=== PATIENT | female | born 1950 | race Caucasian/White ===

== ENCOUNTER 2021-10-15 15:56 | Emergency (ER) | payer MEDICARE, MEDICAID ==
[~2021-10-15] VITALS: Ht 152.4 cm; Wt 63.5 kg
[~2021-10-15 15:56] MED LIST: IMITREX; LEVAAER4
[2021-10-16 04:00] VITALS: BP 145/78
[2021-10-16] MEDS ORDERED: traMADol HCL 50 MG TAB PO ONE (04:00)
[2021-10-16] MEDS ORDERED: methylPREDNISolone SOD SUCC 125 MG/2 ML VL IM ONE (04:00)
== END 2021-10-16 05:34 | disposition home or self-care (01) ==
LOC: EDUNIT# 15:56 → ER 15:56
DX: S93.602A Unspecified sprain of left foot, initial encounter (principal); F17.210 Nicotine dependence, cigarettes, uncomplicated; Z88.0 Allergy status to penicillin; W19.XXXA Unspecified fall, initial encounter; Y93.89 Activity, other specified; Y92.89 Other specified places as the place of occurrence of the external cause; Y99.8 Other external cause status
CPT/HCPCS: 73630; 96372; 99283; J2930

== ENCOUNTER 2022-03-28 18:49 | Emergency (ER) | payer BC, MEDICAID ==
[~2022-03-28] VITALS: Ht 149.9 cm; Wt 48.1 kg
== END 2022-03-28 21:54 | disposition home or self-care (01) ==
LOC: EDBD 18:49 → ER 18:57
DX: I89.0 Lymphedema, not elsewhere classified (principal); F17.210 Nicotine dependence, cigarettes, uncomplicated; I50.9 Heart failure, unspecified; Z79.899 Other long term (current) drug therapy; Z88.8 Allergy status to other drugs, medicaments and biological substances; Z59.00 Homelessness unspecified

== ENCOUNTER 2022-03-29 22:58 | Emergency (ER) | payer BC, MEDICAID ==
[~2022-03-29] VITALS: Ht 157.5 cm; Wt 63.5 kg
[2022-03-30 02:01] LABS: Eosinophils # (auto) 0.1 10 ^3/uL (0-0.8); Eosinophils % (auto) 0.9 % (0.0-7.0); Mean Corpuscular Hemoglobin 24.8 pg (28.0-32.0); Mean Corpuscular Hgb Conc. 32.5 g/dL (32.0-36.0); Monocytes # (auto) 0.4 10 ^3/uL (0-1.3); Neutrophils # (auto) 3.9 10 ^3/uL (1.6-8.6); White Blood Cell 6.3 10^3/uL (4.4-10.8)
[2022-03-30 02:03] LABS: Basophils # (auto) 0 10 ^3/uL (0-0.2); Basophils % (auto) 0.8 % (0.0-2.0); Hematocrit 27.1 % (36.0-46.0); Hemoglobin 8.8 g/dL (12.2-16.2); Lymphocytes # (auto) 1.8 10 ^3/uL (0.4-5.4); Lymphocytes % (auto) 29.5 % (10.0-50.0); Mean Corpuscular Volume 76.4 fL (80.0-100.0); Monocytes % (auto) 5.8 % (0.0-12.0); Red Blood Cells 3.54 10^6/uL (4.0-5.20)
[2022-03-30 02:04] LABS: Red Cell Distribution Width 21.2 % (11.8-14.3)
[2022-03-30 02:20] LABS: Albumin 2.7 g/dL (3.4-5.0); BUN/Creatinine Ratio 26.7; Calcium 8.3 mg/dL (8.5-10.1); Potassium 4.1 mmol/L (3.5-5.1)
[2022-03-30 02:23] LABS: Bilirubin, Total 0.4 mg/dL (0.2-1.0); Total Protein 5.8 g/dL (6.4-8.2)
[2022-03-30 02:30] LABS: Alcohol, Urine < 3.0 mg/dL (0-10); Amphetamine Screen, Urine NEGATIVE (NEGATIVE); Barbiturate Scree,Urine NEGATIVE (NEGATIVE); Benzodiazephine Screen, Urine NEGATIVE (NEGATIVE); Opiate Scree,Urine NEGATIVE (NEGATIVE); Phencyclidine Screen, Urine NEGATIVE (NEGATIVE)
[2022-03-30 02:31] LABS: Cannabinoid Screen, Urine NEGATIVE (NEGATIVE); Cocaine Screen, Urine NEGATIVE (NEGATIVE)
[2022-03-30 03:00] VITALS: BP 120/53
== END 2022-03-30 04:32 | disposition home or self-care (01) ==
LOC: EDBD 22:58 → ER 23:03
DX: R56.9 Unspecified convulsions (principal)
CPT/HCPCS: 36415; 70450; 80053; 80307; 82962; 85025; 93005

== ENCOUNTER 2022-03-30 10:21 | Emergency (ER) | payer BC, MEDICAID ==
[~2022-03-30] VITALS: Ht 149.9 cm; Wt 49.9 kg
== END 2022-03-30 10:44 | disposition left against medical advice (07) ==
LOC: ER 10:21 → EDBD 10:21 → EDUNIT# 10:21 → ER 10:44
DX: Z02.79 Encounter for issue of other medical certificate (principal); Z53.21 Procedure and treatment not carried out due to patient leaving prior to being seen by health care provider

== ENCOUNTER 2022-05-11 13:58 | Inpatient (IN) | payer BC, MEDICAID ==
[~2022-05-11] VITALS: Ht 157.5 cm; Wt 63.5 kg
[2022-05-11] MEDS ORDERED: SODIUM CHLORIDE 0.9% 2,100 ML IV ONE (14:15)
[2022-05-11 15:45] LABS: Basophils # (auto) 0 10 ^3/uL (0-0.2); Basophils % (auto) 0.1 % (0.0-2.0); Eosinophils # (auto) 0 10 ^3/uL (0-0.8); Hemoglobin 8.6 g/dL (12.2-16.2); Monocytes # (auto) 0.7 10 ^3/uL (0-1.3); White Blood Cell 9.9 10^3/uL (4.4-10.8)
[2022-05-11 15:46] LABS: Lymphocytes % (auto) 10.5 % (10.0-50.0); Mean Corpuscular Hemoglobin 23.2 pg (28.0-32.0); Mean Corpuscular Hgb Conc. 30.7 g/dL (32.0-36.0); Mean Corpuscular Volume 75.5 fL (80.0-100.0); Monocytes % (auto) 7.2 % (0.0-12.0); Neutrophils # (auto) 8.1 10 ^3/uL (1.6-8.6); Neutrophils % (auto) 82.2 % (37.0-80.0); Red Blood Cells 3.71 10^6/uL (4.0-5.20); Red Cell Distribution Width 17.8 % (11.8-14.3)
[2022-05-11 15:53] LABS: Albumin 2.7 g/dL (3.4-5.0); Anion Gap 9 (5-15); BUN/Creatinine Ratio 34.2; Blood Alcohol < 3.0 mg/dL (0-5); Blood Urea Nitrogen 25 mg/dL (7-18); Calcium 8.4 mg/dL (8.5-10.1); Carbon Dioxide 25 mmol/L (21-32); Chloride 103 mmol/L (98-107); GFR African American 101 mL/min; GFR Non-African American 83 mL/min; Glucose 106 mg/dL (74-106); Potassium 3.5 mmol/L (3.5-5.1); Sodium 137 mmol/L (136-145)
[2022-05-11 15:56] LABS: Alanine Aminotransferase 72 U/L (13-56); Alkaline Phosphatase 236 U/L (45-117); Aspartate Aminotransferase 63 U/L (15-37); Bilirubin, Total 0.7 mg/dL (0.2-1.0)
[2022-05-11 16:48] LABS: Partial Thromboplastin Time 25.4 sec (23.6-33.0)
[2022-05-11] MEDS ORDERED: VANCOMYCIN 1GM/250ML 250 ML IV ONE (22:00)
[2022-05-11] MEDS ORDERED: PIPERACILLIN-TAZO 4.5GM 100 ML IV ONE (22:00)
[2022-05-12] MEDS ORDERED: SODIUM CHLORIDE 0.9% 1,000 ML IV SCH (07:15)
[2022-05-12] MEDS ORDERED: NITROGLYCERIN 0.4 MG SL TAB SL PRN (07:15)
[2022-05-12] MEDS ORDERED: MORPHINE SULFATE 4 MG/ML SYR/VIAL IV PRN (07:15)
[2022-05-12] MEDS ORDERED: ONDANSETRON HCL 4 MG/2 ML VIAL IV PRN (07:15)
[2022-05-12] MEDS: METOPROLOL TARTRATE 25 MG TAB PO SCH ×2 (09:26→23:25)
[2022-05-12] MEDS: DOCUSATE SOD 100 MG CAP PO SCH (09:26)
[2022-05-12] MEDS: LISINOPRIL 10 MG TAB PO SCH (09:26)
[2022-05-12] MEDS: ACETAMINOPHEN 325 MG TAB PO PRN ×2 (09:35→15:59)
[2022-05-12] MEDS ORDERED: ENOXAPARIN SOD 60 MG/0.6 ML SYRINGE SC SCH (10:00)
[2022-05-12] MEDS ORDERED: CLOPIDOGREL BISULFATE 75 MG TAB PO SCH (10:00)
[2022-05-12] MEDS ORDERED: ASPirin 81 mg TAB PO SCH (10:00)
[2022-05-12] MEDS ORDERED: cefTRIAXone 1GM/50ML D5W 50 ML IV SCH (10:00)
[2022-05-12] MEDS ORDERED: FUROSEMIDE 20 MG/2 ML VIAL IV ONE (11:00)
[2022-05-12] MEDS: CLINDAMYCIN HCL 150 MG CAP PO SCH ×2 (12:34→20:49)
[2022-05-12] MEDS ORDERED: ATORVASTATIN 20 MG TAB PO SCH (22:00)
[2022-05-13] MEDS: CLINDAMYCIN HCL 150 MG CAP PO SCH ×3 (03:27→20:59)
[2022-05-13] MEDS: ACETAMINOPHEN 325 MG TAB PO PRN ×3 (03:30→15:47)
[2022-05-13 05:00] VITALS: BP 103/48
[2022-05-13 05:52] LABS: Basophils # (auto) 0 10 ^3/uL (0-0.2); Eosinophils # (auto) 0 10 ^3/uL (0-0.8); Hemoglobin 7.5 g/dL (12.2-16.2); Lymphocytes # (auto) 0.6 10 ^3/uL (0.4-5.4); Monocytes # (auto) 0.7 10 ^3/uL (0-1.3)
[2022-05-13 05:54] LABS: Basophils % (auto) 0.1 % (0.0-2.0); Hematocrit 24.3 % (36.0-46.0); Lymphocytes % (auto) 4.9 % (10.0-50.0); Mean Corpuscular Hgb Conc. 30.7 g/dL (32.0-36.0); Mean Corpuscular Volume 74.9 fL (80.0-100.0); Monocytes % (auto) 5.4 % (0.0-12.0); Neutrophils # (auto) 11.7 10 ^3/uL (1.6-8.6); Neutrophils % (auto) 89.6 % (37.0-80.0); Red Blood Cells 3.25 10^6/uL (4.0-5.20); Red Cell Distribution Width 17.6 % (11.8-14.3); White Blood Cell 13.1 10^3/uL (4.4-10.8)
[2022-05-13 06:07] LABS: Magnesium 2.1 mg/dL (1.6-2.6); Potassium 3.4 mmol/L (3.5-5.1)
[2022-05-13 06:10] LABS: BUN/Creatinine Ratio 28.6
[2022-05-13 09:00] VITALS: BP 132/51
[2022-05-13] MEDS: DOCUSATE SOD 100 MG CAP PO SCH (09:31)
[2022-05-13] MEDS: LISINOPRIL 10 MG TAB PO SCH (09:32)
[2022-05-13] MEDS: METOPROLOL TARTRATE 25 MG TAB PO SCH (09:32)
[2022-05-13] MEDS ORDERED: FUROSEMIDE 20 MG TAB PO SCH (10:00)
[2022-05-13] MEDS ORDERED: QUET400T PO ×2 (11:28)
[2022-05-13] MEDS ORDERED: DIVA500T2 PO (11:28)
[2022-05-13 13:00] VITALS: BP 101/38
[2022-05-13 17:00] VITALS: BP 104/40
== END 2022-05-13 21:42 | DRG 602 ==
LOC: ER 13:58 → EDBD 13:58 → TELE 05-12 07:06 → TELE-CENTR 05-12 22:40
PROVIDERS: ADMIT Hospitalist; ATTEND Internal Medicine
DX: L03.115 Cellulitis of right lower limb (principal); J18.9 Pneumonia, unspecified organism; F31.81 Bipolar II disorder; L03.114 Cellulitis of left upper limb; L03.113 Cellulitis of right upper limb; I50.22 Chronic systolic (congestive) heart failure; I11.0 Hypertensive heart disease with heart failure; Z20.822 Contact with and (suspected) exposure to COVID-19; J44.9 Chronic obstructive pulmonary disease, unspecified; R56.9 Unspecified convulsions; S81.802A Unspecified open wound, left lower leg, initial encounter; S81.801A Unspecified open wound, right lower leg, initial encounter; S41.102A Unspecified open wound of left upper arm, initial encounter; S41.101A Unspecified open wound of right upper arm, initial encounter; X58.XXXA Exposure to other specified factors, initial encounter; L03.116 Cellulitis of left lower limb; F41.9 Anxiety disorder, unspecified; Z59.00 Homelessness unspecified; Z88.6 Allergy status to analgesic agent; Z88.0 Allergy status to penicillin; Z91.14 Patient's other noncompliance with medication regimen; Y93.89 Activity, other specified; Y92.89 Other specified places as the place of occurrence of the external cause; Y99.8 Other external cause status
CPT/HCPCS: 36415; 36600; 71045; 80048; 80053; 80061; 80320; 82805; 83605; 83735; 83880; 84484; 85025; 85610; 85730; 87040; 87077; 87205; 93306; 93970; 96360; 96372; 97163; 99291; G0378; J0696

== ENCOUNTER 2025-09-25 19:01 | Inpatient (IN) | payer OTHER, MEDICAID ==
[~2025-09-25] VITALS: Ht 152.4 cm; Wt 77.0 kg
[~2025-09-25 19:01] MED LIST changes: +DIVA-91 PO; +QUET400T PO
[2025-09-25 19:12] VITALS: BP 148/80; PULSE 81; RESP 17; TEMP 98.5; O2SAT 97
--- NOTE | 2025-09-25 19:12 | ED.PDOC ---
History of Present Illness HPI Comments 75-YEAR-OLD FEMALE WHO PRESENTS TO THE EMERGENCY DEPARTMENT WITH LEFT LOWER EXTREMITY WOUND. PATIENT WAS AD[facility]ITT[facility] TO [facility] , TREATED FOR MRSA. SHE WAS DISCHARGED IN . SHE STARTED NEW COURSE OF ANTIBIOTIC FOR INFECTED WOUND 10 DAYS AGO, SHE HAS COMPLETED THE COURSE OF ANTIBIOTIC. PATIENT IS A POOR HISTORIAN. PATIENT WAS BROUGHT IN BY EMS FROM [facility]RG[facility] FOR EVALUATION IN THE EMERGENCY DEPARTMENT. REVIEW OF SYSTEMS: General: No fever, no chills, or fatigue HEENT: No sore throat, no earache, no congestion, no neck pain. Cardiac: No chest pain. No palpitations. Lungs: No shortness of breath, no cough. GI: No nausea, no vomiting, no diarrhea, no constipation, no abdominal pain : No dysuria, frequency, or urgency. No hematuria. Musculoskeletal: No joint pain , no joint swelling, no extremity edema. Skin: No rash, no itching. Neuro: No headache, no dizziness, no weakness (And as sated in HPI) PHYSICAL EXAM: General: Awake, alert and oriented. No acute distress. Skin: Skin in warm, dry and intact without rashes or lesions. HEENT: The head is normocephalic and atraumatic. Conjunctivae are clear without exudates or hemorrhage. Sclera is non-icteric. Neck: Normal range of motion. No JVD. Cardiac: Regular rate Respiratory: No signs of respiratory distress. No Stridor. Extremities: EXTENSIVE OPEN LEFT LOWER EXTREMITY WE WILL SURROUNDING ERYTHEMA, PURULENT BASE OF FELL ODOR. LEFT LATERAL CALF. Neurological: The patient is awake, alert and oriented to person, place, and time with normal speech. Speech is clear. There is no facial asymmetry. She is able to ambulate without difficulty using her walker. Psychiatric: Appropriate mood and affect. Good judgement and insight. Chief Complaint: Lower Extremity Time Seen by MD: 19:02 Primary Care Provider: Denies Allergies: Coded Allergies: Aspirin (Verified Allergy, Unknown, 05/12/22) Penicillins (Verified Allergy, Unknown, 05/12/22) Home Meds Reported Medications Quetiapine Fumerate (Seroquel) 400 Mg Tab, 600 MG PO QPM, TAB 05/13/22 Quetiapine Fumerate (Seroquel) 400 Mg Tab, 1 TAB PO QAM, #30 TAB 1 Refill 05/13/22 Divalproex Sodium (Depakote) 500 Mg Tab, 1 TAB PO BID, #60 TAB 1 Refill 05/13/22 Levalbuterol Tartrate (Xopenex Hfa) Aer 11/07/11 [Imitrex] No Conflict Check 11/07/11 Mode of Arrival: EMS Past Medical History PAST MEDICAL HISTORY: Anxiety, Arthritis, CHF, COPD, Depression, HTN, Seizures Surgical History: Denies all surgeries OLIVE GROWER History: No Pertinent OLIVE GROWER History Family History Family History: Unknown Social History Smoker: Cigarettes Alcohol: Denies ETOH Use Drugs: Other Lives In: Homeless Was a procedure done? Was a procedure done?: No Differential Dx Considerations may include: Osteomyelitis, Sepsis, MRSA, Gangrene, Necrotizing Fasciitis, other X-Ray, Labs, Meds, VS Vital Signs Date Time Temp Pulse Resp B/P (MAP) Pulse Ox O2 Delivery O2 Flow Rate FiO2 09/25/25 19:23 98.6 84 19 128/74 (92) 99 98.6 09/25/25 19:22 Room Air* 0 21 09/25/25 19:06 98.4 84 16 145/74 96 98.4 Lab Test 09/25/25 19:40 Range/Units White Blood Count 9.0 4.4-10.8 10^3/uL Red Blood Count 4.31 4.0-5.20 10^6/uL Hemoglobin 11.5 L 12.2-16.2 g/dL Hematocrit 35.8 L 36.0-46.0 % Mean Corpuscular Volume 83.2 80.0-100.0 fL Mean Corpuscular Hemoglobin 26.7 L 28.0-32.0 pg Mean Corpuscular Hemoglobin Concent 32.1 32.0-36.0 g/dL Red Cell Distribution Width 17.6 H 11.8-14.3 % Platelet Count 395 140-450 10^3/uL Mean Platelet Volume 8.1 6.9-10.8 fL Neutrophils (%) (Auto) 71.4 37.0-80.0 % Lymphocytes (%) (Auto) 20.0 10.0-50.0 % Monocytes (%) (Auto) 6.8 0.0-12.0 % Eosinophils (%) (Auto) 0.5 0.0-7.0 % Basophils (%) (Auto) 1.3 0.0-2.0 % Neutrophils # (Auto) 6.5 1.6-8.6 10 ^3/uL Lymphocytes # (Auto) 1.8 0.4-5.4 10 ^3/uL Monocytes # (Auto) 0.6 0-1.3 10 ^3/uL Eosinophils # (Auto) 0 0-0.8 10 ^3/uL Basophils # (Auto) 0.1 0-0.2 10 ^3/uL Nucleated Red Blood Cells 0.1 % Sodium Level 138 136-145 mmol/L Potassium Level 4.4 3.5-5.1 mmol/L Chloride Level 105 98-107 mmol/L Carbon Dioxide Level 24 20-31 mmol/L Anion Gap 9 5-15 Blood Urea Nitrogen 18 9-23 mg/dL Creatinine 0.72 0.550-1.02 mg/dL Glomerular Filtration Rate Calc 87 >90 mL/min BUN/Creatinine Ratio 25.0 H 10.0-20.0 Serum Glucose 126 H 74-106 mg/dL Calcium Level 9.2 8.7-10.4 mg/dL Total Bilirubin 0.3 0.2-1.0 mg/dL Aspartate Amino Transferase (AST) 20 13-40 U/L Alanine Aminotransferase (ALT) < 9 7-40 U/L Alkaline Phosphatase 154 H 46-116 U/L Total Protein 7.1 5.7-8.2 g/dL Albumin 4.0 3.2-4.8 g/dL Time of 1ST Reevaluation: 19:12 Reevaluation 1ST: Unchanged Patient Education/Counseling: Need For Follow Up Family Education/Counseling: No Family Present SEPSIS Sepsis Screen Date sepsis recognized/suspect: Sep 25, 2025 Time Sepsis recognized/suspect: 1907 Recent Procedure: No On Antibiotic Therapy: No Respiratory Rate >20: No Heart Rate >90: No Temp<36 C (96.8 F) or >38.3 C: No SBP <90 or MAP <65 mmHG: No New Acute Mental Status Change: No Is the patient on CPAP, BIPAP,: No Physician Orders Sodium Chloride 0.9% (09/25/25 19:15) Vital Signs Q1HR (09/25/25 19:10) Saline Lock (09/25/25 19:10) Notify Md If Abnormal Vs (09/25/25 19:10) Lactic Acid W/ Reflex Order (09/25/25 19:10) Blood Culture (09/25/25 19:10) Wound Culture W/ Gs (09/25/25 19:10) Vital Signs Date Time Temp Pulse Resp B/P (MAP) Pulse Ox O2 Delivery O2 Flow Rate FiO2 09/25/25 19:23 98.6 84 19 128/74 (92) 99 98.6 09/25/25 19:22 Room Air* 0 21 09/25/25 19:06 98.4 84 16 145/74 96 98.4 Laboratory Tests Test 09/25/25 19:40 White Blood Count 9.0 10^3/uL (4.4-10.8) Departure 1 Departure Time of Disposition: 19:16 Impression: Primary Impression: Non-healing wound Additional Impression: Infected wound Disposition: ADMITTED INPATIENT Condition: Stable Comments MDM: 75 yo female with reported MRSA wound, left calf. Antibiotics initiated in the ED. Blood and Wound cultures ordered. Patient admitted to hospitalist service for further treatment, evaluation and monitoring. Extensive evaluation was performed in attempt to identify or rule out: (See differential diagnosis section) The following tests were ordered, and results were reviewed by me and discussed with patient: (See diagnostic results section) Additional information was gathered from interviewing the following independent historians: EMS personnel Discussion of management or test interpretation with external physician/other qualified health client care manager: N/A Addressed an acute or chronic illness that poses a threat to life or bodily function: Infected, nonhealing wound Decision regarding hospitalization or escalation of hospital level of care: Risk and benefits of admission for further treatment of patient's condition was considered. Due to patient's current clinical condition, high risk of decline and poor outcome if discharged and need for further inpatient management and monitoring, patient will be admitted to the hospital. Critical Care Note Critical Care Time?: No Stability Stability form required: No Heart Score Heart Score: Heart Score Response (Comments) Value History N/A 0 EKG N/A 0 Age N/A 0 Risk Factors N/A 0 Troponin N/A 0 Total 0 I personally scribed for CINDY MENDOZA MD ([email or web address]) on 09/25/25 at 19:12. Electronically submitted by Speedy Zimmerman ([email or web address]). CINDY MENDOZA MD Sep 25, 2025 19:12
[2025-09-25] MEDS: VANCOMYCIN 1GM/250ML KIT 250 ML IV ONE (19:15)
[2025-09-25 19:54] LABS: Mean Corpuscular Hemoglobin 26.7 pg (28.0-32.0); Nucleated Red Blood Cells % 0.1 %
[2025-09-25 19:55] LABS: Hematocrit 35.8 % (36.0-46.0); Hemoglobin 11.5 g/dL (12.2-16.2); Mean Corpuscular Volume 83.2 fL (80.0-100.0)
[2025-09-25 20:08] LABS: Albumin 4.0 g/dL (3.2-4.8); Anion Gap 9 (5-15); BUN/Creatinine Ratio 25.0 (10.0-20.0); Blood Urea Nitrogen 18 mg/dL (9-23); Calcium 9.2 mg/dL (8.7-10.4); Carbon Dioxide 24 mmol/L (20-31); Chloride 105 mmol/L (98-107); Potassium 4.4 mmol/L (3.5-5.1); Sodium 138 mmol/L (136-145); Total Protein 7.1 g/dL (5.7-8.2)
[2025-09-25 20:09] LABS: Alanine Aminotransferase < 9 U/L (7-40); Alkaline Phosphatase 154 U/L (46-116); Bilirubin, Total 0.3 mg/dL (0.2-1.0)
[2025-09-25 20:20] LABS: Glucose 126 mg/dL (74-106)
[2025-09-25] MEDS ORDERED: NITROGLYCERIN 0.4 MG SL TAB SL PRN (22:45)
[2025-09-25] MEDS ORDERED: VANCOMYCIN PER PHARMACY 0 MG IV SCH (22:45)
--- NOTE | 2025-09-25 23:22 | DVHHPRES ---
History of Present Illness Resident Creating Document: MARY GOLDSTEIN RESIDENT History of Present Illness This is a 75-year-old female with past medical history of HTN, COPD not on home oxygen, CHF with reduced ejection fraction LVEF 45%, seizure, bipolar disorder, depression, current smoker came to ER with complaint of left hip and left leg pain associated with nonhealing wound. The left leg pain was7-8/10 intensity, localized, no radiation, continuous, aggravated on weight-bearing in mild relieved on rest. As per patient, patient had left hip fracture and admitted [facility] on July [facility]25 and treated with MRSA, completed oral antibiotic. Patient non-cooperative during history taking. Echocardiogram on 05/13/2022: LVEF 45%, biatrial enlargement, aortic and mitral valve heavily calcified. Blood culture 05/12/2022 shows Streptococcus group A. Patient had remote history of IV drug user , current cigarette smoker and marijuana daily. Patient use Rollator walker for ambulation. Patient denies fever, chills, body aches, vomiting, diarrhea, nausea, abdominal pain, chest pain, shortness of breath, LOC, Past medical history: As above Past surgical history: Patient refused to provide any surgical history. Family history: Nothing contributory Personal history: Smoking cigarettes 1 pack per day, marijuana daily, denies any alcohol or illicit drug Alert Allergy: Aspirin and penicillin PCP: Not selected Home medication: Albuterol, amlodipine, aspirin, atorvastatin, beclomethasone inhalers, budesonide, divalproex, gabapentin, hydroxyzine, metoprolol, quetiapine, Brilinta. Review of Systems Constitutional: Yes: Chills, Malaise; No: Fever, Sweats, Weakness, Other Eyes: No: Pain, Vision change, Conjunctivae inflammation, Eyelid inflammation, Other, Redness ENT: No: Ear pain, Ear discharge, Nose pain, Nose discharge, Nose congestion, Mouth pain, Mouth swelling, Throat pain, Throat swelling, Other Respiratory: No: Cough, Dry, Shortness of breath, SOB with excertion, Wheezing, Hemoptysis, Pleuritic Pain, Sputum, Wheezing, Other Cardiovascular: No: Chest Pain, Palpitations, Orthopnea, Paroxysmal Noc. Dyspnea, Edema, Lt Headedness, Other Gastrointestinal: No: Nausea, Vomiting, Abdominal Pain, Diarrhea, Constipation, Melena, Hematochezia, Other Genitourinary: No Dysuria, No Frequency, No Incontinence, No Hematuria, No Retention, No Other Musculoskeletal: other (Left hip pain), leg pain; No: neck pain, shoulder pain, arm pain, back pain, hand pain, foot pain Skin: Other (Lateral surface of left leg and left hip nonhealing wound); No: Rash, Lesions, Jaundice, Bruising Neurological: Other (Gait instability); No: Weakness, Numbness, Incoordination, Change in speech, Confusion, Seizures Allergies: Coded Allergies: Aspirin (Verified Allergy, Unknown, 05/12/22) Penicillins (Verified Allergy, Unknown, 05/12/22) Medications Current Medications Medications Dose Ordered Sig/Leah Route Start Time Stop Time Status Last Admin Dose Admin Acetaminophen/ Hydrocodone Bitart 1 tab Q4HP PRN PO 09/25/25 22:45 UNV Enoxaparin Sodium 40 mg DAILY SC 09/26/25 10:00 UNV Zinc Sulfate 220 mg DAILY PO 09/26/25 10:00 UNV Ascorbic Acid 500 mg BID PO 09/26/25 10:00 UNV Nitroglycerin 0.4 mg Q5MINP PRN SL 09/25/25 22:45 UNV Ceftriaxone Sodium 50 ml @ 100 mls/hr DAILY@09 IV 09/26/25 09:00 UNV Vancomycin HCl 0 ml @ 0 mls/hr PER PHARMACY IV 09/25/25 22:45 UNV Pantoprazole Sodium 40 mg DAILY@0600 PO 09/26/25 06:00 UNV Ticagrelor 90 mg BID PO 09/26/25 10:00 UNV Quetiapine Fumarate 50 mg BID PO 09/26/25 10:00 UNV Metoprolol Succinate 50 mg DAILY PO 09/26/25 10:00 UNV Gabapentin 300 mg BID PO 09/26/25 10:00 UNV Divalproex Sodium 500 mg BID PO 09/26/25 10:00 UNV Budesonide 0.25 mg BID NEB 09/26/25 10:00 UNV Albuterol 2.5 mg Q8HPRN PRN NEB 09/25/25 22:45 UNV Amlodipine Besylate 5 mg DAILY PO 09/26/25 10:00 UNV Aspirin 81 mg DAILY PO 09/26/25 10:00 UNV Atorvastatin Calcium 80 mg HS PO 09/26/25 22:00 UNV Exam Vital Signs Vital Signs Date Time Temp Pulse Resp B/P (MAP) Pulse Ox O2 Delivery O2 Flow Rate FiO2 09/25/25 19:23 98.6 84 19 128/74 (92) 99 98.6 09/25/25 19:22 Room Air* 0 21 General Appearance: Alert, Oriented X3, mild distress HEENT: Atraumatic, PERRLA, EOMI Respiratory: Normal air movement, Other (Mild wheeze on expiration bilateral lung) Cardiovascular: Regular rate, Normal S1, Normal S2, No murmurs Abdominal: Normal bowel sounds, Soft, No tenderness, No hepatospenomegaly Extremities: No clubbing, No cyanosis, Other (Lateral surface of left leg and left hip nonhealing wound) Skin: No rashes, No breakdown Neuro: Normal speech, Strength at 5/5 X4 ext, Sensation intact, Other (Gait instability) Labs/Xrays Labs Test 09/25/25 19:40 Range/Units White Blood Count 9.0 4.4-10.8 10^3/uL Red Blood Count 4.31 4.0-5.20 10^6/uL Hemoglobin 11.5 L 12.2-16.2 g/dL Hematocrit 35.8 L 36.0-46.0 % Mean Corpuscular Volume 83.2 80.0-100.0 fL Mean Corpuscular Hemoglobin 26.7 L 28.0-32.0 pg Mean Corpuscular Hemoglobin Concent 32.1 32.0-36.0 g/dL Red Cell Distribution Width 17.6 H 11.8-14.3 % Platelet Count 395 140-450 10^3/uL Mean Platelet Volume 8.1 6.9-10.8 fL Neutrophils (%) (Auto) 71.4 37.0-80.0 % Lymphocytes (%) (Auto) 20.0 10.0-50.0 % Monocytes (%) (Auto) 6.8 0.0-12.0 % Eosinophils (%) (Auto) 0.5 0.0-7.0 % Basophils (%) (Auto) 1.3 0.0-2.0 % Neutrophils # (Auto) 6.5 1.6-8.6 10 ^3/uL Lymphocytes # (Auto) 1.8 0.4-5.4 10 ^3/uL Monocytes # (Auto) 0.6 0-1.3 10 ^3/uL Eosinophils # (Auto) 0 0-0.8 10 ^3/uL Basophils # (Auto) 0.1 0-0.2 10 ^3/uL Nucleated Red Blood Cells 0.1 % Sodium Level 138 136-145 mmol/L Potassium Level 4.4 3.5-5.1 mmol/L Chloride Level 105 98-107 mmol/L Carbon Dioxide Level 24 20-31 mmol/L Anion Gap 9 5-15 Blood Urea Nitrogen 18 9-23 mg/dL Creatinine 0.72 0.550-1.02 mg/dL Glomerular Filtration Rate Calc 87 >90 mL/min BUN/Creatinine Ratio 25.0 H 10.0-20.0 Serum Glucose 126 H 74-106 mg/dL Calcium Level 9.2 8.7-10.4 mg/dL Total Bilirubin 0.3 0.2-1.0 mg/dL Aspartate Amino Transferase (AST) 20 13-40 U/L Alanine Aminotransferase (ALT) < 9 7-40 U/L Alkaline Phosphatase 154 H 46-116 U/L Total Protein 7.1 5.7-8.2 g/dL Albumin 4.0 3.2-4.8 g/dL SEPSIS Sepsis Screen Date sepsis recognized/suspect: Sep 25, 2025 Time Sepsis recognized/suspect: 1907 Recent Procedure: No On Antibiotic Therapy: No Respiratory Rate >20: No Heart Rate >90: No Temp<36 C (96.8 F) or >38.3 C: No SBP <90 or MAP <65 mmHG: No New Acute Mental Status Change: No Is the patient on CPAP, BIPAP,: No Physician Orders Sodium Chloride 0.9% (09/25/25 19:15) Vital Signs Q1HR (09/25/25 19:10) Saline Lock (09/25/25 19:10) Notify Md If Abnormal Vs (09/25/25 19:10) Lactic Acid W/ Reflex Order (09/25/25 19:10) Blood Culture (09/25/25 19:10) Wound Culture W/ Gs (09/25/25 19:10) Admit (09/25/25 22:41) Code Status (09/25/25 22:41) Hydrocodone-Acet 5/325mg Tab ([place] 5/32 (09/25/25 22:45) Enoxaparin Sodium (Lovenox) (09/26/25 10:00) Zinc Sulfate (09/26/25 10:00) Ascorbic Acid Tablet (Vitamin C Tablet) (09/26/25 10:00) Echo 2d Mode Cardiac Dop (09/25/25 22:41) Notify Md Of Changes From Base (09/25/25 22:41) Nitroglycerin Sublingual (Ntrostat Subli (09/25/25 22:45) Urinalysis (09/25/25 22:41) Lt Low Ext Art Duplex (09/25/25 22:41) Ceftriaxone 1gm/50ml (Rocephin) (09/26/25 09:00) Vancomycin Per Pharmacy (09/25/25 22:45) Mechanical Soft Diet (09/26/25 Breakfast) Pantoprazole Tablet (Protonix Tablet) (09/26/25 06:00) Ticagrelor (Brilinta) (09/26/25 10:00) Quetiapine Fumarate Tablet (Seroquel Tab (09/26/25 10:00) Metoprolol Xl Succinate (Toprol Xl) (09/26/25 10:00) Gabapentin Capsule (Neurontin Capsule) (09/26/25 10:00) Divalproex Dr Tablet (Depakote "Dr" Tabl (09/26/25 10:00) Budesonide (Inhalation) (Pulmicort) (09/26/25 10:00) Albuterol Medneb (Ventolin Medneb) (09/25/25 22:45) Amlodipine Tablet (Norvasc Tablet) (09/26/25 10:00) Aspirin Tablet (09/26/25 10:00) Atorvastatin (Lipitor) (09/26/25 22:00) * Wound Consult (09/25/25 ) Lt Lower Dvt (09/25/25 22:41) Vital Signs Date Time Temp Pulse Resp B/P (MAP) Pulse Ox O2 Delivery O2 Flow Rate FiO2 09/25/25 19:23 98.6 84 19 128/74 (92) 99 98.6 09/25/25 19:22 Room Air* 0 21 09/25/25 19:06 98.4 84 16 145/74 96 98.4 Laboratory Tests Test 09/25/25 19:40 White Blood Count 9.0 10^3/uL (4.4-10.8) Assessment/Plan Assessment/Plan Left lower extremity nonhealing stage II wound History of MRSA wound s/p treatment Nonhealing wound rule out PID Patient came with lateral surface of left leg and left hip wound In ER, patient received ceftriaxone, vancomycin, NSS X-ray left leg: The bones are diffusely osteopenic. Cortical irregularity of the proximal fibular shaft may represent a old healed fracture. No acute fracture dislocation or other acute abnormality is seen X-ray left hip:Internal fixation of the proximal left femur is seen. Vascular calcifications are noted. Degenerative changes are seen of the lumbar spine. No definite acute fracture is seen. Started empiric antibiotic ceftriaxone and vancomycin Wound culture, Blood culture Lactic acid level Pain management Vitamin-C and zinc Wound consult Arterial and venous duplex MRSA screen Follow-up labs Seizure disorder Continue divalproex Seizure precaution Follow-up neurology outpatient Acute on chronic systolic heart failure Essential hypertension Hyperlipidemia On admission, BP 145/74 and repeat BP 128/74 ECHOCARDIOGRAM ON 05/13/2022: LVEF 45%, biatrial enlargement ortic and mitral valve heavily calcified. Home medication amlodipine and metoprolol Aspirin and Brilinta Atorvastatin 80 mg Echocardiogram COPD without acute exacerbation Albuterol and ipratropium Peripheral neuropathy Gabapentin Elevated alkaline phosphatase Alkaline phosphatase level 154 with normal AST ALT follow-up labs Anemia due to chronic disease hemoglobin 11.5, HCT 35.8, MCH 26.7 RDW 17.6 CBC Prediabetes HBA1C 6.0 Substance use disorder and current smoker Counseling time more than 30 minutes U tox NONCOMPLIANCE WITH MEDICAL MANAGEMENT Discussed side effects of noncompliance with medical management. Patient verbally agreed vertebral discussed. Diet: Cardiac diet DVT prophylaxis: Patient ambulating GI prophylaxis: Pantoprazole Goals of care discussions. More than 27 minute spent with patient. Full code status. Case discussed with Dr. Rosenberg. Plan discussed with: Patient, Other (Nurse) My Orders Orders - MARY GOLDSTEIN RESIDENT Procedure Category Date Status Time Admit ADMIT 09/25/25 Transmitted 22:41 Code Status CODE 09/25/25 Transmitted 22:41 Hydrocodone-Acet PHA 09/25/25 Logged 5/325mg Tab ([place] 22:45 Enoxaparin Sodium PHA 09/26/25 Logged (Lovenox) 10:00 Zinc Sulfate PHA 09/26/25 Logged 10:00 Ascorbic Acid Tablet PHA 09/26/25 Logged (Vitamin C Tablet) 10:00 Echo 2d Mode Cardiac US 09/25/25 Logged DOP 22:41 Notify Of Changes [facility] 09/25/25 In Process From [facility] 22:41 Nitroglycerin PHA 09/25/25 Logged Sublingual (Ntrostat 22:45 Urinalysis LAB 09/25/25 Logged 22:41 Lt Low Ext Art Duplex US 09/25/25 Logged 22:41 Ceftriaxone 1gm/50ml PHA 09/26/25 Logged (Rocephin) 09:00 Vancomycin Per PHA 09/25/25 Logged Pharmacy 22:45 Mechanical Soft Diet DIET 09/26/25 Transmitted Breakfast Pantoprazole Tablet PHA 09/26/25 Logged (Protonix Tablet) 06:00 Ticagrelor (Brilinta) PHA 09/26/25 Logged 10:00 Quetiapine Fumarate PHA 09/26/25 Logged Tablet (Seroquel Tab 10:00 Metoprolol Xl PHA 09/26/25 Logged Succinate (Toprol Xl) 10:00 Gabapentin Capsule PHA 09/26/25 Logged (Neurontin Capsule) 10:[address] Tablet PHA 09/26/25 Logged (Depakote "Dr" Tabl 10:00 Budesonide PHA 09/26/25 Logged (Inhalation) 10:00 Albuterol Medneb PHA 09/25/25 Logged (Ventolin Medneb) 22:45 Amlodipine Tablet PHA 09/26/25 Logged (Norvasc Tablet) 10:00 Aspirin Tablet PHA 09/26/25 Logged 10:00 Atorvastatin (Lipitor) PHA 09/26/25 Logged 22:00 * Wound Consult CONS 09/25/25 Transmitted Lt Lower Dvt US 09/25/25 Logged 22:41 Date of Service: Sep 25, 2025 Billing Provider: CAMILLA ROSENBERG MD Common Visit Codes: 36931-[id number] INP/OBS CARE (HIGH) Secondary Visit Codes: [id number] CARE PLAN 30 MINUTES MARY GOLDSTEIN Sep 25, 2025 23:22
[2025-09-26 00:13] VITALS: O2SAT 97
[2025-09-26 00:47] VITALS: BP 128/74; PULSE 84; RESP 19; TEMP 98.6; O2SAT 99
--- NOTE | 2025-09-26 01:45 | DVH ---
MEDICAL RECORDS NUMBER: [id number] PROCEDURE: XY L HIP 1V XRAY DATE: 09/26/2025 01:08 AM HISTORY: Nonhealing on to rule out osteomyelitis COMPARISON: None FINDINGS/IMPRESSION: The bones are osteopenic. Internal fixation of the proximal left femur is seen. Vascular calcifications are noted. Degenerative changes are seen of the lumbar spine. No definite acute fracture is seen. Mild degenerative changes are seen of the left hip
--- NOTE | 2025-09-26 01:45 | DVH ---
MEDICAL RECORDS NUMBER: [id number] PROCEDURE: XY L TIB FIB XRAY DATE: 09/26/2025 01:09 AM HISTORY: Nonhealing on to rule out osteomyelitis COMPARISON: L FOOT COMPLETE XRAY on DOS: 10/15/21 FINDINGS/IMPRESSION: The bones are diffusely osteopenic. Degenerative changes are seen at the ankle and knee. Cortical irregularity of the proximal fibular shaft may represent a old healed fracture. No acute fracture dislocation or other acute abnormality is seen.
[2025-09-26] MEDS: SODIUM CHLORIDE 0.9% 1,000 ML IV ONE ×2 (04:47→04:57)
[2025-09-26] MEDS: PANTOPRAZOLE 40 MG TAB PO SCH (06:55)
[2025-09-26] MEDS: HYDROcodone-ACET 5/325MG TAB PO PRN (06:55)
[2025-09-26] MEDS: TICAGRELOR 90 MG TAB PO SCH (10:00)
[2025-09-26] MEDS: METOPROLOL SUCCINATE XL 50 MG TAB PO SCH (10:00)
[2025-09-26] MEDS: ASCORBIC ACID 500 MG TAB PO SCH (10:00)
[2025-09-26] MEDS ORDERED: ENOXAPARIN SOD 40 MG/0.4 ML SYRINGE SC SCH (10:00)
[2025-09-26] MEDS ORDERED: BUDESONIDE (INHALATION) 0.5 MG/2 ML NEB NEB SCH (10:00)
[2025-09-26] MEDS: ZINC SULFATE 220mg CAP or TAB PO SCH (10:00)
--- NOTE | 2025-09-26 11:35 | DVHPNRES ---
Progress Note Date Seen: Sep 26, 2025 Resident Creating Document: ELVIRA ROGERS RESIDENT Medical Necessity Reason Pt with a Central, PICC or Fol: No Subjective Review of Systems This is a 75-year-old female with past medical history of HTN, coronary artery disease, status post PCI x4 in 2022 at [facility], COPD not on home oxygen, CHF with reduced ejection fraction LVEF 45%, seizure, bipolar disorder, depression, current smoker came to ER with complaint of left hip and left leg pain associated with nonhealing wound. The left leg pain was 8/10 intensity, localized, no radiation, continuous, aggravated on weight-bearing in mild relieved on rest. Patient reported having greenish discharge from the wound of the left foot for last 2 months. As per patient, patient had left hip fracture and admitted [facility] on July 2025 and treated with MRSA, completed oral antibiotic. Patient non-cooperative during history taking. Echocardiogram on 05/13/2022: LVEF 45%, biatrial enlargement, aortic and mitral valve heavily calcified. Blood culture 05/12/2022 shows Streptococcus group A. Patient had remote history of IV drug user , current cigarette smoker and marijuana daily. Patient use Rollator walker for ambulation. Patient denies fever, chills, body aches, vomiting, diarrhea, nausea, abdominal pain, chest pain, shortness of breath, LOC, initial lab workup revealed hemoglobin 11.5, hemoglobin A1c 6.0, blood sugar 126. -X-ray left leg: The bones are diffusely osteopenic. Cortical irregularity of the proximal fibular shaft may represent a old healed fracture. , No acute fracture dislocation or other acute abnormality is seen -X-ray left hip:Internal fixation of the proximal left femur is seen. Vascular calcifications are noted. Degenerative changes are seen of the lumbar spine. No definite acute fracture is seen. Past medical history: HTN, COPD not on home oxygen, CHF with reduced ejection fraction LVEF 45%, seizure, bipolar disorder, depression, current smoker Past surgical history: Fracture repair of the left hip status post fall,. Family history: Nothing contributory Personal history: Smoking cigarettes 1 pack per day, marijuana daily, denies any alcohol or illicit drug Alert Allergy: Aspirin and penicillin Home medication: Albuterol, amlodipine, aspirin, atorvastatin, beclomethasone inhalers, budesonide, divalproex, gabapentin, hydroxyzine, metoprolol, quetiapine, Brilinta. PCP: Not selected ROS Cardiovascular- deny acute chest pain or shortness of breath or cough or palpitation Respiratory denies cough or short of breath or wheezing Gastrointestinal- denies any rectal bleeding, nausea or vomiting Neurological- denies acute dysarthria, dysphagia, change in vision Psychiatry- denies depression or SI or HI Skin- denies acute rash or purpura Patient was seen today at bedside, labs and chart reviewed. Patient's wound on the left lateral hip and left lower extremity. Left hip wound is hitting, no discharge noted, left lower extremity wound on the left lateral side of the leg with some discharge and wheezing, nonhealing. Ordered CT scan of the lower extremity to rule out cellulitis/osteomyelitis, patient refused. Patient verbalized she is claustrophobic. Pending wound culture, ordered wound consult. On IV antibiotic ceftriaxone vancomycin. Objective vital signs Vital Sign Date Time Temp Pulse Resp B/P (MAP) Pulse Ox O2 Delivery O2 Flow Rate FiO2 09/26/25 10:41 97.6 84 16 135/60 (85) 97 97.6 09/26/25 00:47 0.0 21 09/26/25 00:13 Room Air* medications Current Medications Medications Dose Ordered Sig/Leah Route Start Time Stop Time Status Last Admin Dose Admin Acetaminophen/ Hydrocodone Bitart 1 tab Q4HP PRN PO 09/25/25 22:45 09/26/25 06:55 1 TAB Zinc Sulfate 220 mg DAILY PO 09/26/25 10:00 Ascorbic Acid 500 mg BID PO 09/26/25 10:00 Nitroglycerin 0.4 mg Q5MINP PRN SL 09/25/25 22:45 Ceftriaxone Sodium 50 ml @ 100 mls/hr DAILY@2100 IV 09/26/25 21:00 Vancomycin HCl 0 ml @ 0 mls/hr PER PHARMACY IV 09/25/25 22:45 Pantoprazole Sodium 40 mg DAILY@0600 PO 09/26/25 06:00 09/26/25 06:55 40 MG Ticagrelor 90 mg BID PO 09/26/25 10:00 Quetiapine Fumarate 50 mg BID PO 09/26/25 10:00 Metoprolol Succinate 50 mg DAILY PO 09/26/25 10:00 Gabapentin 300 mg BID PO 09/26/25 10:00 Divalproex Sodium 500 mg BID PO 09/26/25 10:00 Albuterol 2.5 mg Q8HPRN PRN NEB 09/25/25 22:45 Amlodipine Besylate 5 mg DAILY PO 09/26/25 10:00 Aspirin 81 mg DAILY PO 09/26/25 10:00 Hold Atorvastatin Calcium 80 mg HS PO 09/26/25 22:00 Examination General examination- HEENT- PEERLA, no acute nasal discharge Cardiovascular- S1-S2 audible, rate and rhythm regular, no murmur Respiratory- CTAB, no wheeze or rhonchi Gastrointestinal-nontender, bowel sound+. Nondistended Musculoskeletal-no acute joint swelling or tenderness or redness Lower extremity- Neurological- cranial nerves intact, no acute dysarthria or dysphagia Psychiatry- denies depression or SI or HI Skin- no acute rash or purpura laboratory and microbiology Laboratory Tests 09/25/25 19:40 Test 09/25/25 19:40 Range/Units Serum Glucose 126 H 74-106 mg/dL Problem List/Assessment/Plan Problem List/Assessment/Plan Assessment and plan # Left lower extremity nonhealing infected stage II wound #History of MRSA wound s/p treatment #Nonhealing wound rule out PAD -X-ray left leg: The bones are diffusely osteopenic. Cortical irregularity of the proximal fibular shaft may represent a old healed fracture. , No acute fracture dislocation or other acute abnormality is seen -X-ray left hip:Internal fixation of the proximal left femur is seen. Vascular calcifications are noted. Degenerative changes are seen of the lumbar spine. No definite acute fracture is seen. -continue ceftriaxone and vancomycin -Wound culture, Blood culture -Lactic acid level -WBC within normal limit -ordered wound consult -pending wound culture, blood culture, MRSA screening -continue ceftriaxone as prescribed -continue vancomycin as per pharmacy protocol -ordered CT scan of the left lower extremity without contrast to rule out cellulitis/osteomyelitis-patient refused #Seizure disorder -Resumed home medication divalproex 500 p.o. b.i.d. -Seizure precaution -Follow-up neurology outpatient # CAD, status post PCI x4 in 2022 [facility] #Acute on chronic systolic heart failure, #Essential hypertension #Hyperlipidemia - Echocardiogram on 05/13/2022-LVEF 45%, biatrial enlargement ortic and mitral valve heavily calcified. -continue aspirin 81 mg p.o. daily -Brilinta 90 mg p.o. b.i.d. -atorvastatin 80 mg p.o. q.h.s. -amlodipine 5 mg p.o. daily -pantoprazole 40 mg p.o. daily #COPD without acute exacerbation Nebulization we Albuterol and ipratropium PRN # bipolar disorder type 2 # depression -continue quetiapine 50 mg p.o. b.i.d. -continue divalproex 500 mg p.o. b.i.d. #Peripheral neuropathy -continue Gabapentin 100 mg p.o. b.i.d. #Elevated alkaline phosphatase Alkaline phosphatase level 154 with normal AST ALT follow-up labs #Anemia due to chronic disease -monitor CBC #Prediabetes HBA1C 6.0 -low carb diet #Substance use disorder and current smoker -counseled about the effect of substance abuse on health # noncompliant with Discussed side effects of noncompliance with medical management. Patient verbally agreed vertebral discussed. Goals of care, Code status full code ; discussed with >15 minutes PUD prophylaxis: Pantoprazole DVT prophylaxis: Lovenox Plan discussed with Dr. Pastor , nursing staff, Patient yellow Total time spent on patient evaluation, chart review, assessment and plan, discussion discussion >35 minutes Plan discussed with: Patient, Other (RN) Date of Service: Sep 26, 2025 Billing Provider: ARTHUR PASTOR DO Common Visit Codes: [id number] INP/OBS CARE(HIGH) ELVIRA ROGERS RESIDENT Sep 26, 2025 11:35 ARTHUR APSTOR DO Sep 28, 2025 13:25
[2025-09-26 16:50] VITALS: O2SAT 97
[2025-09-26 17:11] VITALS: BP 148/80; PULSE 81; RESP 17; TEMP 98.5; O2SAT 97
[2025-09-26] MEDS: GABAPENTIN 300 MG CAP PO SCH (17:15)
[2025-09-26] MEDS ORDERED: HYDR-3682 PO (17:34)
[2025-09-26] MEDS ORDERED: ASPI-717 PO (17:41)
[2025-09-26] MEDS ORDERED: QUET50TA27 PO (17:41)
[2025-09-26] MEDS ORDERED: GABA-1250 PO (17:41)
[2025-09-26] MEDS ORDERED: BUDE0.5S IN (17:41)
[2025-09-26] MEDS ORDERED: AMLO1TAB22 PO (17:41)
[2025-09-26] MEDS ORDERED: ATOR-47 PO (17:41)
[2025-09-26] MEDS ORDERED: DIVA-93 PO (17:41)
[2025-09-26] MEDS ORDERED: METO-289 PO (17:41)
[2025-09-26] MEDS ORDERED: TICA90TA PO (17:41)
[2025-09-26 20:00] VITALS: PULSE 95; RESP 18; O2SAT 95
[2025-09-26 20:44] VITALS: BP 137/57; PULSE 95; RESP 18; TEMP 97.6; O2SAT 93
[2025-09-26] MEDS: VANCOMYCIN 750MG KIT 100 ML IV ONE (22:00)
[2025-09-26] MEDS: ATORVASTATIN 20 MG TAB PO SCH (22:00)
[2025-09-27] VITALS (10 sets, daily range): BP systolic 103–176; BP diastolic 40–83; PULSE 52–78; RESP 16–20; TEMP 96.9–98.6; O2SAT 90–98
[2025-09-27 06:55] LABS: Hematocrit 34.0 % (36.0-46.0); Hemoglobin 11.0 g/dL (12.2-16.2); Mean Corpuscular Hemoglobin 26.4 pg (28.0-32.0); Mean Corpuscular Volume 81.3 fL (80.0-100.0); Nucleated Red Blood Cells % 0.0 %
[2025-09-27 08:15] LABS: Albumin 3.5 g/dL (3.2-4.8); Anion Gap 12 (5-15); BUN/Creatinine Ratio 28.4 (10.0-20.0); Bilirubin, Total 0.3 mg/dL (0.2-1.0); Blood Urea Nitrogen 23 mg/dL (9-23); Calcium 8.9 mg/dL (8.7-10.4); Carbon Dioxide 24 mmol/L (20-31); Magnesium 2.2 mg/dL (1.6-2.6); Potassium 4.6 mmol/L (3.5-5.1); Sodium 145 mmol/L (136-145); Total Protein 6.3 g/dL (5.7-8.2)
[2025-09-27 08:19] LABS: Alanine Aminotransferase < 9 U/L (7-40); Alkaline Phosphatase 132 U/L (46-116); Chloride 109 mmol/L (98-107); Glucose 72 mg/dL (74-106)
[2025-09-27] MEDS: ALBUTEROL SULF 2.5 MG/0.5ML(0.5%) NEB SOLN NEB PRN (09:33)
--- NOTE | 2025-09-27 10:18 | DVHPNRES ---
Progress Note Date Seen: Sep 27, 2025 Resident Creating Document: MATILDA VALENTINE RESIDENT Has the PT tested + for MRSA If YES, has PT been informed?: No Medical Necessity Reason Pt with a Central, PICC or Fol: No Subjective Review of Systems This is a 75-year-old female with past medical history of HTN, coronary artery disease, status post PCI x4 in 2022 at [facility], COPD not on home oxygen, CHF with reduced ejection fraction LVEF 45%, seizure, bipolar disorder, depression, current smoker came to ER with complaint of left hip and left leg pain associated with nonhealing wound. The left leg pain was 8/10 intensity, localized, no radiation, continuous, aggravated on weight-bearing in mild relieved on rest. Patient reported having greenish discharge from the wound of the left foot for last 2 months. As per patient, patient had left hip fracture and admitted [facility] on July 2025 and treated with MRSA, completed oral antibiotic. Patient non-cooperative during history taking. Echocardiogram on 05/13/2022: LVEF 45%, biatrial enlargement, aortic and mitral valve heavily calcified. Blood culture 05/12/2022 shows Streptococcus group A. Patient had remote history of IV drug user , current cigarette smoker and marijuana daily. Patient use Rollator walker for ambulation. Patient denies fever, chills, body aches, vomiting, diarrhea, nausea, abdominal pain, chest pain, shortness of breath, LOC, initial lab workup revealed hemoglobin 11.5, hemoglobin A1c 6.0, blood sugar 126. -X-ray left leg: The bones are diffusely osteopenic. Cortical irregularity of the proximal fibular shaft may represent a old healed fracture. , No acute fracture dislocation or other acute abnormality is seen -X-ray left hip:Internal fixation of the proximal left femur is seen. Vascular calcifications are noted. Degenerative changes are seen of the lumbar spine. No definite acute fracture is seen. Past medical history: HTN, COPD not on home oxygen, CHF with reduced ejection fraction LVEF 45%, seizure, bipolar disorder, depression, current smoker Past surgical history: Fracture repair of the left hip status post fall,. Family history: Nothing contributory Personal history: Smoking cigarettes 1 pack per day, marijuana daily, denies any alcohol or illicit drug Alert Allergy: Aspirin and penicillin Home medication: Albuterol, amlodipine, aspirin, atorvastatin, beclomethasone inhalers, budesonide, divalproex, gabapentin, hydroxyzine, metoprolol, quetiapine, Brilinta. PCP: Not selected Patient was seen today at bedside, labs and chart reviewed. Patient's wound on the left lateral hip and left lower extremity. Left hip wound no discharge noted, left lower extremity wound on the left lateral side of the leg with some discharge and oozing, nonhealing. CT scan of the lower extremity ruled out cellulitis/osteomyelitis. On IV antibiotic ceftriaxone vancomycin. Patient had an episode of AMS, very brief, vitals and sugars were stable, after that the patient started to be very aggressive and refused all treatments, at this time patient is stable we will continue monitoring Changes from previous H/P or p: Changes Objective vital signs Vital Sign Date Time Temp Pulse Resp B/P (MAP) Pulse Ox O2 Delivery O2 Flow Rate FiO2 09/27/25 08:54 176/83 09/27/25 08:54 87 09/27/25 04:53 98.1 17 95 98.1 09/26/25 20:00 Room Air* 0 21 Total Intake and Output 09/26/25 09/26/25 09/27/25 15:00 23:00 07:00 Intake Total 0 ml 660 ml Balance 0 ml 660 ml medications Current Medications Medications Dose Ordered Sig/Leah Route Start Time Stop Time Status Last Admin Dose Admin Acetaminophen/ Hydrocodone Bitart 1 tab Q4HP PRN PO 09/25/25 22:45 09/27/25 08:55 1 TAB Zinc Sulfate 220 mg DAILY PO 09/26/25 10:00 Ascorbic Acid 500 mg BID PO 09/26/25 10:00 Nitroglycerin 0.4 mg Q5MINP PRN SL 09/25/25 22:45 Ceftriaxone Sodium 50 ml @ 100 mls/hr DAILY@2100 IV 09/26/25 21:00 Vancomycin HCl 0 ml @ 0 mls/hr PER PHARMACY IV 09/25/25 22:45 Pantoprazole Sodium 40 mg DAILY@0600 PO 09/26/25 06:00 09/27/25 05:40 40 MG Ticagrelor 90 mg BID PO 09/26/25 10:00 09/26/25 21:27 90 MG Quetiapine Fumarate 50 mg BID PO 09/26/25 10:00 09/27/25 08:56 50 MG Metoprolol Succinate 50 mg DAILY PO 09/26/25 10:00 09/27/25 08:54 50 MG Gabapentin 300 mg BID PO 09/26/25 10:00 09/27/25 08:54 300 MG Divalproex Sodium 500 mg BID PO 09/26/25 10:00 09/26/25 21:27 500 MG Albuterol 2.5 mg Q8HPRN PRN NEB 09/25/25 22:45 09/27/25 09:33 2.5 MG Amlodipine Besylate 5 mg DAILY PO 09/26/25 10:00 09/27/25 08:54 5 MG Aspirin 81 mg DAILY PO 09/26/25 10:00 Hold Atorvastatin Calcium 80 mg HS PO 09/26/25 22:00 Examination HEENT- PEERLA, no acute nasal discharge Cardiovascular- S1-S2 audible, rate and rhythm regular, no murmur Respiratory- CTAB, no wheeze or rhonchi Gastrointestinal-nontender, bowel sound+. Nondistended Left hip wound no discharge, left mid leg wound with discharge Neurological- cranial nerves intact, no acute dysarthria or dysphagia Psychiatry- denies depression or SI or HI Skin- no acute rash or purpura laboratory and microbiology Laboratory Tests 09/27/25 05:24 Test 09/27/25 05:24 Range/Units Serum Glucose 72 L 74-106 mg/dL Problem List/Assessment/Plan Problem List/Assessment/Plan #Acute metabolic encephalopathy due to sepsis #Possible dementia Patient had an episode of AMS, very brief, vitals and sugars were stable, after that the patient started to be very aggressive and refused all treatments, at this time patient is stable we will continue monitoring # Left lower extremity nonhealing infected stage II wound #History of MRSA wound s/p treatment #Nonhealing wound rule out PAD -X-ray left leg: The bones are diffusely osteopenic. Cortical irregularity of the proximal fibular shaft may represent a old healed fracture. , No acute fracture dislocation or other acute abnormality is seen -X-ray left hip:Internal fixation of the proximal left femur is seen. Vascular calcifications are noted. Degenerative changes are seen of the lumbar spine. No definite acute fracture is seen. -continue ceftriaxone and vancomycin -Wound culture, Blood culture -Lactic acid level -WBC within normal limit -ordered wound consult: patient refused treatment -pending wound culture, blood culture pending, MRSA screening neg -continue ceftriaxone as prescribed -continue vancomycin as per pharmacy protocol -CT scan of the left lower extremity without contrast ruled out cellulitis/osteomyelitis-patient refused #Seizure disorder -Resumed home medication divalproex 500 p.o. b.i.d. -Seizure precaution -Follow-up neurology outpatient # CAD, status post PCI x4 in 2022 [facility] #Acute on chronic systolic heart failure, #Essential hypertension #Hyperlipidemia - Echocardiogram on 05/13/2022-LVEF 45%, biatrial enlargement ortic and mitral valve heavily calcified. -continue aspirin 81 mg p.o. daily -Brilinta 90 mg p.o. b.i.d. -atorvastatin 80 mg p.o. q.h.s. -amlodipine 5 mg p.o. daily -pantoprazole 40 mg p.o. daily #COPD without acute exacerbation Nebulization we Albuterol and ipratropium PRN # bipolar disorder type 2 # depression -continue quetiapine 50 mg p.o. b.i.d. -continue divalproex 500 mg p.o. b.i.d. #Peripheral neuropathy -continue Gabapentin 100 mg p.o. b.i.d. #Elevated alkaline phosphatase Alkaline phosphatase level 154 with normal AST ALT follow-up labs #Anemia due to chronic disease -monitor CBC #Prediabetes HBA1C 6.0 -low carb diet #Substance use disorder and current smoker -counseled about the effect of substance abuse on health # noncompliant with Discussed side effects of noncompliance with medical management. Patient verbally agreed vertebral discussed. Goals of care, Code status full code ; discussed with >15 minutes PUD prophylaxis: Pantoprazole DVT prophylaxis: Lovenox Plan discussed with Dr. Priest , nursing staff, Patient yellow Total time spent on patient evaluation, chart review, assessment and plan, discussion discussion >35 minutes Plan discussed with: Patient, Other (rn) My Orders My Orders Orders - MATILDA VALENTINE RESIDENT Procedure Category Date Status Time Left Lower Extremity CT 09/27/25 Logged W/O Con 09:40 Date of Service: Sep 27, 2025 Billing Provider: CURTIS PRIEST MD Common Visit Codes: [id number] INP/OBS CARE(HIGH) MATILDA VALENTINE RESIDENT Sep 27, 2025 10:17 ARTHUR PASTOR DO Sep 28, 2025 13:26 CURTIS PRIEST MD Oct 08, 2025 20:43
[2025-09-27] MEDS ORDERED: SODIUM CHLORIDE 0.9% 250 ML IV ONE (12:15)
--- NOTE | 2025-09-27 12:17 | DVH ---
Indication: no healing wound, rule out abcess Technique: CT axial images of the left tibia/ fibula from the left knee to the left ankle obtained without contrast. Coronal and sagittal reformats were obtained. Radiation Dose Information: CTDI volume is 7.75 mGy. Dose-length product is 330.84 mGy*cm Comparison: None FINDINGS/IMPRESSION: Limited evaluation without contrast. Lateral left lower extremity soft tissue edema / stranding and skin thickening with ulceration. No loculated fluid collection identified, within the limitations of noncontrast examination. Atherosclerotic calcification disease. Osteopenia. Old/ chronic appearing proximal fibular fracture deformity. Correlate with point tenderness to exclude acute fracture. Achilles enthesopathy.
[2025-09-27] MEDS: VANCOMYCIN 1GM/250ML KIT 250 ML IV ONE (16:00)
[2025-09-27 17:04] LABS: Urine Protein, UAD Negative (Negative)
[2025-09-27 17:14] LABS: Amphetamine Screen, Urine Neg (NEGATIVE); Barbiturate Scree,Urine Neg (NEGATIVE); Benzodiazephine Screen, Urine Neg (NEGATIVE); Cannabinoid Screen, Urine Pos (NEGATIVE); Cocaine Screen, Urine Neg (NEGATIVE); Opiate Scree,Urine Neg (NEGATIVE); Phencyclidine Screen, Urine Neg (NEGATIVE)
--- NOTE | 2025-09-27 17:49 | DVHSR ---
APPROVED REPORT EXAM: Two-dimensional and M-mode echocardiogram with Doppler and color Doppler. Blood Pressure: 152/68 mmHg RISK FACTORS Height: 5', Weight: 123 Mitral Valve Mitral Mitral Stenosis E/A ratio 0.0 2D MVA cm2 Other Information Quality : Technically Limited Rhythm : Technically limited study due to pt becomming agitated and aggresive. Pt refused to finish exam Conclusion Technically limited study. Poor patient cooperation. Sinus rhythm. Concentric LVH with left atrial enlargement. Mild aortic sclerosis. Moderate mitral annular calcification. Thickening and calcification of the base of the posterior mitral leaflet. Thickening of the anterior mitral leaflet base as well as [id number] calcification noted. Calcified papillary muscle. Tricuspid and pulmonic or structurally normal. Left ventricular function is preserved. EF of approximately 55% with impaired diastolic relaxation. Doppler is suboptimal. No subcostal or apical views obtained.
[2025-09-28] VITALS (7 sets, daily range): BP systolic 101–152; BP diastolic 63–90; PULSE 59–88; RESP 16–18; TEMP 96.1–97.9; O2SAT 90–96
[2025-09-28 06:49] LABS: Hematocrit 32.7 % (36.0-46.0); Hemoglobin 10.6 g/dL (12.2-16.2); Mean Corpuscular Hemoglobin 26.9 pg (28.0-32.0); Mean Corpuscular Volume 82.6 fL (80.0-100.0); Nucleated Red Blood Cells % 0.0 %
[2025-09-28 06:53] LABS: Alanine Aminotransferase 31 U/L (7-40); Albumin 3.8 g/dL (3.2-4.8); Anion Gap 9 (5-15); BUN/Creatinine Ratio 26.1 (10.0-20.0); Calcium 8.9 mg/dL (8.7-10.4); Carbon Dioxide 25 mmol/L (20-31); Chloride 106 mmol/L (98-107); Glucose 99 mg/dL (74-106); Potassium 4.6 mmol/L (3.5-5.1); Sodium 140 mmol/L (136-145); Total Protein 6.6 g/dL (5.7-8.2)
[2025-09-28 06:54] LABS: Bilirubin, Total 0.4 mg/dL (0.2-1.0)
[2025-09-28 07:08] LABS: Alkaline Phosphatase 260 U/L (46-116); Blood Urea Nitrogen 24 mg/dL (9-23)
--- NOTE | 2025-09-28 15:59 | DVHPNRES ---
Progress Note Date Seen: Sep 28, 2025 Resident Creating Document: ELVIRA ROGERS RESIDENT Has the PT tested + for MRSA If YES, has PT been informed?: No Medical Necessity Reason Pt with a Central, PICC or Fol: No Subjective Review of Systems This is a 75-year-old female with past medical history of HTN, coronary artery disease, status post PCI x4 in 2022 at [facility], COPD not on home oxygen, CHF with reduced ejection fraction LVEF 45%, seizure, bipolar disorder, depression, current smoker came to ER with complaint of left hip and left leg pain associated with nonhealing wound. The left leg pain was 8/10 intensity, localized, no radiation, continuous, aggravated on weight-bearing in mild relieved on rest. Patient reported having greenish discharge from the wound of the left foot for last 2 months. As per patient, patient had left hip fracture and admitted [facility] on July 2025 and treated with MRSA, completed oral antibiotic. Patient non-cooperative during history taking. Echocardiogram on 05/13/2022: LVEF 45%, biatrial enlargement, aortic and mitral valve heavily calcified. Blood culture 05/12/2022 shows Streptococcus group A. Patient had remote history of IV drug user , current cigarette smoker and marijuana daily. Patient use Rollator walker for ambulation. Patient denies fever, chills, body aches, vomiting, diarrhea, nausea, abdominal pain, chest pain, shortness of breath, LOC, initial lab workup revealed hemoglobin 11.5, hemoglobin A1c 6.0, blood sugar 126. -X-ray left leg: The bones are diffusely osteopenic. Cortical irregularity of the proximal fibular shaft may represent a old healed fracture. , No acute fracture dislocation or other acute abnormality is seen -X-ray left hip:Internal fixation of the proximal left femur is seen. Vascular calcifications are noted. Degenerative changes are seen of the lumbar spine. No definite acute fracture is seen. UDS positive for cannabinoids. CT scan of the left lower extremity- Lateral left lower extremity soft tissue edema / stranding and skin thickening with ulceration. No loculated fluid collection identified, within the limitations of noncontrast examination. Atherosclerotic calcification disease. Osteopenia. Old/ chronic appearing proximal fibular fracture deformity. Correlate with point tenderness to exclude acute fracture. Past medical history: HTN, COPD not on home oxygen, CHF with reduced ejection fraction LVEF 45%, seizure, bipolar disorder, depression, current smoker Past surgical history: Fracture repair of the left hip status post fall,. Family history: Nothing contributory Personal history: Smoking cigarettes 1 pack per day, marijuana daily, denies any alcohol or illicit drug Alert Allergy: Aspirin and penicillin Home medication: Albuterol, amlodipine, aspirin, atorvastatin, beclomethasone inhalers, budesonide, divalproex, gabapentin, hydroxyzine, metoprolol, quetiapine, Brilinta. PCP: Marian Dennis Patient was seen today at bedside, labs and chart reviewed. Patient on IV antibiotic ceftriaxone and vancomycin. Patient was recommended for SNF and IV antibiotic but patient refused even after explaining that IV antibiotic would help her better to heal the wound. Patient was adamant about getting oral antibiotic,. RN Mr. Stubbs was at the bedside at the same time. Objective vital signs Vital Sign Date Time Temp Pulse Resp B/P (MAP) Pulse Ox O2 Delivery O2 Flow Rate FiO2 09/28/25 13:00 96.4 69 16 101/65 (77) 92 96.4 09/28/25 09:00 Room Air 0.0 09/28/25 09:00 21 Total Intake and Output 09/27/25 09/27/25 09/28/25 15:00 23:00 07:00 Intake Total 1250 ml 700 ml Balance 1250 ml 700 ml medications Current Medications Medications Dose Ordered Sig/Leah Route Start Time Stop Time Status Last Admin Dose Admin Acetaminophen/ Hydrocodone Bitart 1 tab Q4HP PRN PO 09/25/25 22:45 09/28/25 08:55 1 TAB Zinc Sulfate 220 mg DAILY PO 09/26/25 10:00 09/28/25 08:48 220 MG Ascorbic Acid 500 mg BID PO 09/26/25 10:00 Nitroglycerin 0.4 mg Q5MINP PRN SL 09/25/25 22:45 Ceftriaxone Sodium 50 ml @ 100 mls/hr DAILY@2100 IV 09/26/25 21:00 Vancomycin HCl 0 ml @ 0 mls/hr PER PHARMACY IV 09/25/25 22:45 Pantoprazole Sodium 40 mg DAILY@0600 PO 09/26/25 06:00 09/27/25 05:40 40 MG Ticagrelor 90 mg BID PO 09/26/25 10:00 09/28/25 08:49 90 MG Quetiapine Fumarate 50 mg BID PO 09/26/25 10:00 09/28/25 08:50 50 MG Metoprolol Succinate 50 mg DAILY PO 09/26/25 10:00 09/28/25 08:50 50 MG Gabapentin 300 mg BID PO 09/26/25 10:00 09/28/25 08:49 300 MG Divalproex Sodium 500 mg BID PO 09/26/25 10:00 09/28/25 08:49 500 MG Albuterol 2.5 mg Q8HPRN PRN NEB 09/25/25 22:45 09/27/25 09:33 2.5 MG Amlodipine Besylate 5 mg DAILY PO 09/26/25 10:00 09/28/25 08:50 5 MG Aspirin 81 mg DAILY PO 09/26/25 10:00 Hold Atorvastatin Calcium 80 mg HS PO 09/26/25 22:00 Examination General examination- not in acute distress HEENT- PEERLA, no acute nasal discharge Cardiovascular- S1-S2 audible, rate and rhythm regular, no murmur Respiratory- CTAB, no wheeze or rhonchi Gastrointestinal-nontender, bowel sound+. Nondistended Musculoskeletal-no acute joint swelling or tenderness or redness Lower extremity- wound on the left hip, healing, wound on the left lateral leg with discharge Neurological- cranial nerves intact, no acute dysarthria or dysphagia Psychiatry- denies depression or SI or HI Skin- no acute rash or purpura laboratory and microbiology Laboratory Tests 09/28/25 05:27 Test 09/28/25 05:27 Range/Units Serum Glucose 99 74-106 mg/dL Microbiology Date/Time Source Procedure Growth Status 09/26/25 21:38 Nose MRSA Screen - Final Complete Problem List/Assessment/Plan Problem List/Assessment/Plan Assessment and plan # Left lower extremity nonhealing infected stage II wound #History of MRSA wound s/p treatment #Nonhealing wound rule out PAD -X-ray left leg: The bones are diffusely osteopenic. Cortical irregularity of the proximal fibular shaft may represent a old healed fracture. , No acute fracture dislocation or other acute abnormality is seen -X-ray left hip:Internal fixation of the proximal left femur is seen. Vascular calcifications are noted. Degenerative changes are seen of the lumbar spine. No definite acute fracture is seen. -Wound culture, Blood culture -WBC within normal limit -ordered wound consult -pending wound culture -continue ceftriaxone as prescribed -continue vancomycin as per pharmacy protocol -CT scan of the left lower extremity without contrast to rule out cellulitis/osteomyelitis-Lateral left lower extremity soft tissue edema / stranding and skin thickening with ulceration. No loculated fluid collection identified #Seizure disorder -Resumed home medication divalproex 500 p.o. b.i.d. -Seizure precaution -Follow-up neurology outpatient # CAD, status post PCI x4 in 2022 [facility] #Acute on chronic systolic heart failure, #Essential hypertension #Hyperlipidemia - Echocardiogram on 05/13/2022-LVEF 45%, biatrial enlargement ortic and mitral valve heavily calcified. -continue aspirin 81 mg p.o. daily -Brilinta 90 mg p.o. b.i.d. -atorvastatin 80 mg p.o. q.h.s. -amlodipine 5 mg p.o. daily -pantoprazole 40 mg p.o. daily #COPD without acute exacerbation Nebulization we Albuterol and ipratropium PRN # bipolar disorder type 2 # depression -continue quetiapine 50 mg p.o. b.i.d. -continue divalproex 500 mg p.o. b.i.d. #Peripheral neuropathy -continue Gabapentin 100 mg p.o. b.i.d. #Elevated alkaline phosphatase Alkaline phosphatase level 154 with normal AST ALT follow-up labs #Anemia due to chronic disease -monitor CBC #Prediabetes HBA1C 6.0 -low carb diet #Substance use disorder and current smoker -counseled about the effect of substance abuse on health # noncompliant with Discussed side effects of noncompliance with medical management. Patient verbally agreed vertebral discussed. Goals of care, Code status full code ; discussed with >15 minutes PUD prophylaxis: Pantoprazole DVT prophylaxis: Lovenox Plan discussed with , nursing staff, Patient Total time spent on patient evaluation, chart review, assessment and plan, discussion discussion >35 minutes Plan discussed with: Patient, Other (RN) Dietary Evaluation Review Comments: Nutrition Recommendation: 1) Consider CCHO 45gm + cardiac diet 2) Monitor PO intake, lab values, weight trend, and I/O Expected Outcomes/Goals: Wound to improve FU 3-5 days Date of Service: Sep 28, 2025 Billing Provider: CURTIS JOINER MD Common Visit Codes: [id number] INP/OBS CARE(HIGH) ELVIRA ROGERS RESIDENT Sep 28, 2025 15:59 CURTIS JOINER MD Oct 08, 2025 20:43
[2025-09-28] MEDS: ERGOCALCIFEROL 50,000 UNIT(1.25MG) CAP PO SCH (16:48)
[2025-09-28] MEDS: VANCOMYCIN 750MG KIT 100 ML IV SCH (16:49)
[2025-09-29] VITALS (8 sets, daily range): BP systolic 106–143; BP diastolic 52–74; PULSE 52–84; RESP 16–19; TEMP 97.1–98.3; O2SAT 93–97
--- NOTE | 2025-09-29 09:40 | DVHDSRES ---
Discharge Summary Date of Admission Resident Creating Document: ELVIRA ROGERS RESIDENT Sep 25, 2025 at 22:41 Date of Discharge: Sep 29, 2025 Admitting Diagnosis # Left lower extremity nonhealing infected stage II wound Labs/Diagnostic Data: Laboratory Results Test 09/28/25 05:27 09/27/25 16:43 09/27/25 05:24 09/25/25 19:40 White Blood Count 5.8 10^3/uL (4.4-10.8) Red Blood Count 3.95 10^6/uL (4.0-5.20) Hemoglobin 10.6 g/dL (12.2-16.2) Hematocrit 32.7 % (36.0-46.0) Mean Corpuscular Volume 82.6 fL (80.0-100.0) Mean Corpuscular Hemoglobin 26.9 pg (28.0-32.0) Mean Corpuscular Hemoglobin Concent 32.6 g/dL (32.0-36.0) Red Cell Distribution Width 17.3 % (11.8-14.3) Platelet Count 304 10^3/uL (140-450) Mean Platelet Volume 8.2 fL (6.9-10.8) Neutrophils (%) (Auto) 54.2 % (37.0-80.0) Lymphocytes (%) (Auto) 32.8 % (10.0-50.0) Monocytes (%) (Auto) 8.5 % (0.0-12.0) Eosinophils (%) (Auto) 3.2 % (0.0-7.0) Basophils (%) (Auto) 1.3 % (0.0-2.0) Neutrophils # (Auto) 3.1 10 ^3/uL (1.6-8.6) Lymphocytes # (Auto) 1.9 10 ^3/uL (0.4-5.4) Monocytes # (Auto) 0.5 10 ^3/uL (0-1.3) Eosinophils # (Auto) 0.2 10 ^3/uL (0-0.8) Basophils # (Auto) 0.1 10 ^3/uL (0-0.2) Nucleated Red Blood Cells 0.0 % Sodium Level 140 mmol/L (136-145) Potassium Level 4.6 mmol/L (3.5-5.1) Chloride Level 106 mmol/L (98-107) Carbon Dioxide Level 25 mmol/L (20-31) Anion Gap 9 (5-15) Blood Urea Nitrogen 24 mg/dL (9-23) Creatinine 0.92 mg/dL (0.550-1.02) Glomerular Filtration Rate Calc 65 mL/min (>90) BUN/Creatinine Ratio 26.1 (10.0-20.0) Serum Glucose 99 mg/dL (74-106) Calcium Level 8.9 mg/dL (8.7-10.4) Total Bilirubin 0.4 mg/dL (0.2-1.0) Aspartate Amino Transferase (AST) 158 U/L (13-40) Alanine Aminotransferase (ALT) 31 U/L (7-40) Alkaline Phosphatase 260 U/L (46-116) Total Protein 6.6 g/dL (5.7-8.2) Albumin 3.8 g/dL (3.2-4.8) Vitamin B12 Level 437 pg/mL (211-911) Vitamin D 25-Hydroxy 29.3 ng/mL (30.0-100) Folic Acid 15.53 ng/mL (>5.38) Random Vancomycin Level < 3.0 ug/mL (5-10) Urine Color Light-yellow (Yellow) Urine Clarity Clear (Clear) Urine pH 7.5 (5.0-9.0) Urine Specific [place] 1.009 (1.001-1.035) Urine Protein Negative (Negative) Urine Ketones Negative (Negative) Urine Blood Negative /uL (Negative) Urine Nitrite Negative (Negative) Urine Bilirubin Negative (Negative) Urine Urobilinogen Normal mg/dL (Negative) Urine Leukocyte Esterase Negative /uL (Negative) Urine RBC 1 /hpf (0 - 4) Urine Microscopic WBC < 1 /HPF (0-5) Urine Squamous Epithelial Cells Few /hpf (<5) Urine Bacteria None seen /hpf (None Seen) Urine Glucose Normal mg/dL (Normal) Urine Opiates Screen Neg (NEGATIVE) Urine Fentanyl Screen Neg (NEGATIVE) Urine Barbiturates Screen Neg (NEGATIVE) Urine Phencyclidine Screen Neg (NEGATIVE) Urine Amphetamines Screen Neg (NEGATIVE) Urine Benzodiazepines Screen Neg (NEGATIVE) Urine Cocaine Screen Neg (NEGATIVE) Urine Cannabinoids Screen Pos (NEGATIVE) Magnesium Level 2.2 mg/dL (1.6-2.6) Hemoglobin A1c 6.0 % A1C (<5.7) Thyroid Stimulating Hormone (TSH) 1.63 uIU/mL (0.55-4.78) Other Laboratory Tests 09/28/25 05:27 Brief Hx & Hospital Course: This is a 75-year-old female with past medical history of HTN, coronary artery disease, status post PCI x4 in 2022 at [facility], COPD not on home oxygen, CHF with reduced ejection fraction LVEF 45%, seizure, bipolar disorder, depression, current smoker came to ER with complaint of left hip and left leg pain associated with nonhealing wound. The left leg pain was 8/10 intensity, localized, no radiation, continuous, aggravated on weight-bearing in mild relieved on rest. Patient reported having greenish discharge from the wound of the left foot for last 2 months. As per patient, patient had left hip fracture and admitted [facility] on July 2025 and treated with MRSA, completed oral antibiotic. Patient non-cooperative during history taking. Echocardiogram on 05/13/2022: LVEF 45%, biatrial enlargement, aortic and mitral valve heavily calcified. Blood culture 05/12/2022 shows Streptococcus group A. Patient had remote history of IV drug user , current cigarette smoker and marijuana daily. Patient use Rollator walker for ambulation. Patient denies fever, chills, body aches, vomiting, diarrhea, nausea, abdominal pain, chest pain, shortness of breath, LOC, initial lab workup revealed hemoglobin 11.5, hemoglobin A1c 6.0, blood sugar 126. -X-ray left leg: The bones are diffusely osteopenic. Cortical irregularity of the proximal fibular shaft may represent a old healed fracture. , No acute fracture dislocation or other acute abnormality is seen -X-ray left hip:Internal fixation of the proximal left femur is seen. Vascular calcifications are noted. Degenerative changes are seen of the lumbar spine. No definite acute fracture is seen. UDS positive for cannabinoids. CT scan of the left lower extremity- Lateral left lower extremity soft tissue edema / stranding and skin thickening with ulceration. No loculated fluid collection identified, within the limitations of noncontrast examination. Atherosclerotic calcification disease. Osteopenia. Old/ chronic appearing proximal fibular fracture deformity. Correlate with point tenderness to exclude acute fracture. During hospital course patient was treated with IV antibiotic ceftriaxone vancomycin, patient was noncompliant with treatment, refused wound culture, patient was counseled about the importance of med adenosine treatment drainage. Patient verbalized understanding. Patient is adamant about being discharged today. Patient is being discharged home with the home health for wound care. Patient is being discharged with doxycycline 100 mg p.o. b.i.d.. Patient was advised to follow up with the DC clinic, PCP. Patient is hemodynamically stable on discharge General examination- not in acute distress HEENT- PEERLA, no acute nasal discharge Cardiovascular- S1-S2 audible, rate and rhythm regular, no murmur Respiratory- CTAB, no wheeze or rhonchi Gastrointestinal-nontender, bowel sound+. Nondistended Musculoskeletal-no acute joint swelling or tenderness or redness Lower extremity- wound on the left hip, healing, wound on the left lateral leg with discharge Neurological- cranial nerves intact, no acute dysarthria or dysphagia Psychiatry- denies depression or SI or HI Skin- no acute rash or purpura Plan of care discussed with Dr. Priest Operations or Procedures [place] [id number] Ph: [phone] DIAGNOSTIC IMAGING Diagnostic Imaging Report : [id number] Signed PATIENT: GHAZALA SAUCEDO ACCT: [id number] UNIT: [id number] : 1950 LOC: OVERFLOW ROOM / BED: [address] [place] [address] / A AGE / SEX: 75 / F ADM STATUS: ADM IN SERVICE 2330 ORDERING PHYSICIAN: MARY GOLDSTEIN RESIDENT PROCEDURE(s): LHIP1 - L HIP 1V XRAY REASON: Nonhealing on to rule out osteomyelitis ORDER NUMBER(s): [id number], ACCESSION NUMBER(s): [id number] MEDICAL RECORDS NUMBER: [id number] PROCEDURE: XY L HIP 1V XRAY DATE: 09/26/2025 01:08 AM HISTORY: Nonhealing on to rule out osteomyelitis COMPARISON: None FINDINGS/IMPRESSION: The bones are osteopenic. Internal fixation of the proximal left femur is seen. Vascular calcifications are noted. Degenerative changes are seen of the lumbar spine. No definite acute fracture is seen. Mild degenerative changes are seen of the left hip ATED BY: HERMAN ROCA MD DICTATED DATE/TIME: 09/26/25142 SIGNED BY: HERMAN ROCA MD SIGNED DATE/TIME: 09/26/25142 CC: [place] [id number] Ph: [phone] DIAGNOSTIC IMAGING Diagnostic Imaging Report : [id number] Signed PATIENT: GHAZALA SAUCEDO ACCT: [id number] UNIT: [id number] : 1950 LOC: OVERFLOW ROOM / BED: 1021-ER / A AGE / SEX: 75 / F ADM STATUS: ADM IN SERVICE 2330 ORDERING PHYSICIAN: MARY GOLDSTEIN PROCEDURE(s): LTBFB - L TIB FIB XRAY REASON: Nonhealing on to rule out osteomyelitis ORDER NUMBER(s): [id number], ACCESSION NUMBER(s): [id number] MEDICAL RECORDS NUMBER: [id number] PROCEDURE: XY L TIB FIB XRAY DATE: 09/26/2025 01:09 AM HISTORY: Nonhealing on to rule out osteomyelitis COMPARISON: L FOOT COMPLETE XRAY on DOS: 10/15/21 FINDINGS/IMPRESSION: The bones are diffusely osteopenic. Degenerative changes are seen at the ankle and knee. Cortical irregularity of the proximal fibular shaft may represent a old healed fracture. No acute fracture dislocation or other acute abnormality is seen. ATED BY: HERMAN ROCA MD DICTATED DATE/TIME: 09/26/25141 SIGNED BY: HERMAN ROCA MD SIGNED DATE/TIME: 09/26/25141 CC: [place] [id number] Ph: [phone] DIAGNOSTIC IMAGING Diagnostic Imaging Report : [id number] Signed PATIENT: GHAZALA SAUCEDO ACCT: [id number] UNIT: [id number] : 1950 LOC: CENTRAL ROOM / BED: 0219 / B AGE / SEX: 75 / F ADM STATUS: ADM IN SERVICE 0940 ORDERING PHYSICIAN: MATILDA VALENTINE PROCEDURE(s): LLEX - LEFT LOWER EXTREMITY W/O CON REASON: no healing wound, rule out abcess ORDER NUMBER(s): [id number], ACCESSION NUMBER(s): [id number] Indication: no healing wound, rule out abcess Technique: CT axial images of the left tibia/ fibula from the left knee to the left ankle obtained without contrast. Coronal and sagittal reformats were obtained. Radiation Dose Information: CTDI volume is 7.75 mGy. Dose-length product is 330.84 mGy*cm Comparison: None FINDINGS/IMPRESSION: Limited evaluation without contrast. Lateral left lower extremity soft tissue edema / stranding and skin thickening with ulceration. No loculated fluid collection identified, within the limitations of noncontrast examination. Atherosclerotic calcification disease. Osteopenia. Old/ chronic appearing proximal fibular fracture deformity. Correlate with point tenderness to exclude acute fracture. Achilles enthesopathy. ATED BY: NENA POSADA MD DICTATED DATE/TIME: 09/27/25 1220 SIGNED BY: NENA POSADA MD SIGNED DATE/TIME: 09/27/25 1220 CC: Condition at Discharge: Stable Final Diagnosis/Problems List # Left lower extremity nonhealing infected stage II wound #History of MRSA wound s/p treatment #Nonhealing wound rule out PAD #Seizure disorder # CAD, status post PCI x4 in 2022 [facility] #Acute on chronic systolic heart failure, #Essential hypertension #Hyperlipidemia #COPD without acute exacerbation # bipolar disorder type 2 # depression #Peripheral neuropathy #Elevated alkaline phosphatase #Anemia due to chronic disease #Prediabetes #Substance use disorder and current smoker # noncompliant with Discharge Disposition: Home with Health Services Discharge Instruct/Medications Diet: Consistent carbohydrate, Cardiac 2g Na,low cholest Activity: Light activity Follow Up/Referral: DC clinic PCP Medications: Doxycycline as prescribed Resume other home medication Scheduled Amlodipine Besylate (Amlodipine Besylate), 5 MG PO DAILY, (Reported) Aspirin Buffered (Joey Carb-Mag (Aspirin 325 mg), 1 TAB PO DAILY, (Reported) Atorvastatin Calcium (Atorvastatin Calcium), 80 MG PO DAILY, (Reported) Budesonide (Inhalation) (Budesonide), 0.5 MG IN BID, (Reported) Divalproex Sodium (Depakote), 1 TAB PO BID, (Reported) Divalproex Sodium (Depakote Er), 500 MG PO BID, (Reported) Gabapentin (Gabapentin), 300 MG PO BID, (Reported) Hydroxyzine Hcl (Hydroxyzine Hcl), 25 MG PO TIDPRN, (Reported) Metoprolol Succinate (Metoprolol Succinate Er), 50 MG PO DAILY, (Reported) Quetiapine Fumerate (Seroquel), 1 TAB PO QAM, (Reported) Quetiapine Fumerate (Seroquel), 600 MG PO QPM, (Reported) Quetiapine Fumerate (Quetiapine Fumarate), 50 MG PO BID, (Reported) Ticagrelor Base (Brilinta), 90 MG PO BID, (Reported) Miscellaneous Medications Levalbuterol Tartrate (Xopenex Hfa), (Reported) [Imitrex], (Reported) Discharge Statement: "Patient was advised to return to the ER or call 911 if any headaches, dizziness, shortness of breath, chest pain, abdominal pain, bleeding, fevers, or worsening of medical condition. Patient was counseled about treatment plan, medications, possible side effects, patientverbalized understanding. All questions were answered to the best of my ability. This discharge took greater then 30 minutes in planning, reviewing documentation, counseling the patient, and discussing with other team members." ASSESSMENT ASSESSMENT Assessment Date of Service: Sep 29, 2025 Billing Provider: CURTIS PRIEST MD Common Visit Codes: [id number] INP/OBS CARE(HIGH) ELVIRA ROGERS RESIDENT Sep 29, 2025 09:39 CURTIS PRIEST MD Oct 08, 2025 20:45
[2025-09-29] MEDS ORDERED: DOXY100C79 PO (09:45)
[2025-09-29] MEDS ORDERED: ERGO1CAP23 PO (09:54)
[2025-09-29] MEDS: DOXYCYCLINE 100 MG TAB/CAP PO ONE (18:05)
[2025-09-30] VITALS (9 sets, daily range): BP systolic 99–154; BP diastolic 39–86; PULSE 52–84; RESP 16–19; TEMP 97.2–98.5; O2SAT 91–98
--- NOTE | 2025-09-30 13:40 | DVHPN2 ---
TRI CUNNING[facility] RESIDENT 09/30/25 1340: Progress Note Date Seen: Sep 30, 2025 Has the PT tested + for MRSA If YES, has PT been informed?: No Medical Necessity Reason Pt with a Central, PICC or Fol: No Subjective Review of Systems This is a 75-year-old female with past medical history of HTN, coronary artery disease, status post PCI x4 in 2022 at [facility], COPD not on home oxygen, CHF with reduced ejection fraction LVEF 45%, seizure, bipolar disorder, depression, current smoker came to ER with complaint of left hip and left leg pain associated with nonhealing wound. The left leg pain was 8/10 intensity, localized, no radiation, continuous, aggravated on weight-bearing in mild relieved on rest. Patient reported having greenish discharge from the wound of the left foot for last 2 months. As per patient, patient had left hip fracture and admitted [facility] on July 2025 and treated with MRSA, completed oral antibiotic. Patient non-cooperative during history taking. Echocardiogram on 05/13/2022: LVEF 45%, biatrial enlargement, aortic and mitral valve heavily calcified. Blood culture 05/12/2022 shows Streptococcus group A. Patient had remote history of IV drug user , current cigarette smoker and marijuana daily. Patient use Rollator walker for ambulation. Patient denies fever, chills, body aches, vomiting, diarrhea, nausea, abdominal pain, chest pain, shortness of breath, LOC, initial lab workup revealed hemoglobin 11.5, hemoglobin A1c 6.0, blood sugar 126. -X-ray left leg: The bones are diffusely osteopenic. Cortical irregularity of the proximal fibular shaft may represent a old healed fracture. , No acute fracture dislocation or other acute abnormality is seen -X-ray left hip:Internal fixation of the proximal left femur is seen. Vascular calcifications are noted. Degenerative changes are seen of the lumbar spine. No definite acute fracture is seen. UDS positive for cannabinoids. CT scan of the left lower extremity- Lateral left lower extremity soft tissue edema / stranding and skin thickening with ulceration. No loculated fluid collection identified, within the limitations of noncontrast examination. Atherosclerotic calcification disease. Osteopenia. Old/ chronic appearing proximal fibular fracture deformity. Correlate with point tenderness to exclude acute fracture. Past medical history: HTN, COPD not on home oxygen, CHF with reduced ejection fraction LVEF 45%, seizure, bipolar disorder, depression, current smoker Past surgical history: Fracture repair of the left hip status post fall,. Family history: Nothing contributory Personal history: Smoking cigarettes 1 pack per day, marijuana daily, denies any alcohol or illicit drug Alert Allergy: Aspirin and penicillin Home medication: Albuterol, amlodipine, aspirin, atorvastatin, beclomethasone inhalers, budesonide, divalproex, gabapentin, hydroxyzine, metoprolol, quetiapine, Brilinta. PCP: Marian Dennis Patient was seen today at bedside, labs and chart reviewed. Patient on IV antibiotic ceftriaxone and vancomycin. Patient was recommended for SNF and IV antibiotic but patient refused even after explaining that IV antibiotic would help her better to heal the wound. Patient was adamant about getting oral antibiotic,. RN Mr. Stubbs was at the bedside at the same time. On 09/30/25, Patient was seen and examined at bedside. Overnight events were reviewed. The patient reports improvement in her symptoms. Per Damien at [facility], IE coverage was terminated on September 08, 2025. The patient is no longer an IE member since September 08, 2025, which may affect discharge planning. Objective vital signs Vital Sign Date Time Temp Pulse Resp B/P (MAP) Pulse Ox O2 Delivery O2 Flow Rate FiO2 09/30/25 13:00 98.5 61 17 99/39 (59) 91 98.5 09/30/25 12:26 Room Air* 0 21 Total Intake and Output 09/29/25 09/29/25 09/30/25 15:00 23:00 07:00 Intake Total 850 ml 1200 ml Balance 850 ml 1200 ml medications Current Medications Medications Dose Ordered Sig/Leah Route Start Time Stop Time Status Last Admin Dose Admin Acetaminophen/ Hydrocodone Bitart 1 tab Q4HP PRN PO 09/25/25 22:45 09/30/25 09:11 1 TAB Zinc Sulfate 220 mg DAILY PO 09/26/25 10:00 09/30/25 09:09 220 MG Ascorbic Acid 500 mg BID PO 09/26/25 10:00 Nitroglycerin 0.4 mg Q5MINP PRN SL 09/25/25 22:45 Pantoprazole Sodium 40 mg DAILY@0600 PO 09/26/25 06:00 09/27/25 05:40 40 MG Ticagrelor 90 mg BID PO 09/26/25 10:00 09/30/25 09:11 90 MG Quetiapine Fumarate 50 mg BID PO 09/26/25 10:00 09/30/25 09:11 50 MG Metoprolol Succinate 50 mg DAILY PO 09/26/25 10:00 09/30/25 09:10 50 MG Gabapentin 300 mg BID PO 09/26/25 10:00 09/30/25 09:09 300 MG Divalproex Sodium 500 mg BID PO 09/26/25 10:00 09/30/25 09:11 500 MG Albuterol 2.5 mg Q8HPRN PRN NEB 09/25/25 22:45 09/27/25 09:33 2.5 MG Amlodipine Besylate 5 mg DAILY PO 09/26/25 10:00 09/30/25 09:10 5 MG Aspirin 81 mg DAILY PO 09/26/25 10:00 Hold Atorvastatin Calcium 80 mg HS PO 09/26/25 22:00 09/29/25 22:01 80 MG Ergocalciferol 50,000 unit Q7D PO 09/28/25 16:00 Examination General examination- not in acute distress HEENT- PEERLA, no acute nasal discharge Cardiovascular- S1-S2 audible, rate and rhythm regular, no murmur Respiratory- CTAB, no wheeze or rhonchi Gastrointestinal-nontender, bowel sound+. Nondistended Musculoskeletal-no acute joint swelling or tenderness or redness Lower extremity- wound on the left hip, healing, wound on the left lateral leg with discharge Neurological- cranial nerves intact, no acute dysarthria or dysphagia Psychiatry- denies depression or SI or HI Skin- no acute rash or purpura laboratory and microbiology Laboratory Tests 09/28/25 05:27 Test 09/28/25 05:27 Range/Units Serum Glucose 99 74-106 mg/dL Microbiology Date/Time Source Procedure Growth Status 09/29/25 17:23 Foot Left Gram Stain - Final Resulted 09/29/25 17:23 Foot Left Wound Culture - Preliminary No growth Resulted Labs and/or images reviewed: Labs reviewed by me, Image(s) reviewed by me Problem List/Assessment/Plan Problem List/Assessment/Plan Assessment and plan # Left lower extremity nonhealing infected stage II wound #History of MRSA wound s/p treatment #Nonhealing wound rule out PAD -X-ray left leg: The bones are diffusely osteopenic. Cortical irregularity of the proximal fibular shaft may represent a old healed fracture. , No acute fracture dislocation or other acute abnormality is seen -X-ray left hip:Internal fixation of the proximal left femur is seen. Vascular calcifications are noted. Degenerative changes are seen of the lumbar spine. No definite acute fracture is seen. -continue ceftriaxone and vancomycin -Wound culture, Blood culture -Lactic acid level -WBC within normal limit -ordered wound consult -pending wound culture, MRSA screening -continue ceftriaxone as prescribed -continue vancomycin as per pharmacy protocol -CT scan of the left lower extremity without contrast to rule out cellulitis/osteomyelitis-Lateral left lower extremity soft tissue edema / stranding and skin thickening with ulceration. No loculated fluid collection identified #Seizure disorder -Resumed home medication divalproex 500 p.o. b.i.d. -Seizure precaution -Follow-up neurology outpatient # CAD, status post PCI x4 in 2022 [facility] #Acute on chronic systolic heart failure, #Essential hypertension #Hyperlipidemia - Echocardiogram on 05/13/2022-LVEF 45%, biatrial enlargement ortic and mitral valve heavily calcified. -continue aspirin 81 mg p.o. daily -Brilinta 90 mg p.o. b.i.d. -atorvastatin 80 mg p.o. q.h.s. -amlodipine 5 mg p.o. daily -pantoprazole 40 mg p.o. daily #COPD without acute exacerbation Nebulization we Albuterol and ipratropium PRN # bipolar disorder type 2 # depression -continue quetiapine 50 mg p.o. b.i.d. -continue divalproex 500 mg p.o. b.i.d. #Peripheral neuropathy -continue Gabapentin 100 mg p.o. b.i.d. #Elevated alkaline phosphatase Alkaline phosphatase level 154 with normal AST ALT follow-up labs #Anemia due to chronic disease -monitor CBC #Prediabetes HBA1C 6.0 -low carb diet #Substance use disorder and current smoker -counseled about the effect of substance abuse on health # noncompliant with Discussed side effects of noncompliance with medical management. Patient verbally agreed vertebral discussed. Goals of care, Code status full code ; discussed with >15 minutes PUD prophylaxis: Pantoprazole DVT prophylaxis: Lovenox Plan discussed with Dr. Priest , nursing staff, Patient yellow Total time spent on patient evaluation, chart review, assessment and plan, discussion discussion >35 minutes Plan discussed with: Patient, Other (RN) Dietary Evaluation Review Comments: Nutrition Recommendation: 1) Consider CCHO 45gm + cardiac diet 2) Monitor PO intake, lab values, weight trend, and I/O Expected Outcomes/Goals: Wound to improve FU 3-5 days Date of Service: Sep 30, 2025 Billing Provider: CURTIS PRIEST MD Common Visit Codes: [id number] INP/OBS CARE(HIGH) CURTIS PRIEST MD 10/08/25 2045: [facility] RESIDENT Sep 30, 2025 13:40 CURTIS PRIEST MD Oct 08, 2025 20:45
[2025-10-01 00:12] VITALS: O2SAT 90
[2025-10-01 07:47] LABS: Alanine Aminotransferase 18 U/L (7-40); Albumin 3.8 g/dL (3.2-4.8); Anion Gap 12 (5-15); BUN/Creatinine Ratio 21.4 (10.0-20.0); Blood Urea Nitrogen 18 mg/dL (9-23); Calcium 8.9 mg/dL (8.7-10.4); Carbon Dioxide 25 mmol/L (20-31); Chloride 104 mmol/L (98-107); Potassium 4.3 mmol/L (3.5-5.1); Sodium 141 mmol/L (136-145); Total Protein 6.6 g/dL (5.7-8.2)
[2025-10-01 07:48] LABS: Bilirubin, Total 0.4 mg/dL (0.2-1.0)
[2025-10-01 07:53] LABS: Alkaline Phosphatase 246 U/L (46-116); Glucose 118 mg/dL (74-106)
[2025-10-01 08:00] VITALS: RESP 16
[2025-10-01 09:00] VITALS: BP 137/68; PULSE 72; RESP 18; TEMP 97.5; O2SAT 93
[2025-10-01] MEDS: DOXYCYCLINE 100 MG TAB/CAP PO ONE (10:25)
--- NOTE | 2025-10-01 10:43 | DVHPNRES ---
Progress Note Date Seen: Oct 01, 2025 Resident Creating Document: ELVIRA ROGERS RESIDENT Has the PT tested + for MRSA If YES, has PT been informed?: No Medical Necessity Reason Pt with a Central, PICC or Fol: No Subjective Review of Systems This is a 75-year-old female with past medical history of HTN, coronary artery disease, status post PCI x4 in 2022 at [facility], COPD not on home oxygen, CHF with reduced ejection fraction LVEF 45%, seizure, bipolar disorder, depression, current smoker came to ER with complaint of left hip and left leg pain associated with nonhealing wound. The left leg pain was 8/10 intensity, localized, no radiation, continuous, aggravated on weight-bearing in mild relieved on rest. Patient reported having greenish discharge from the wound of the left foot for last 2 months. As per patient, patient had left hip fracture and admitted [facility] on July 2025 and treated with MRSA, completed oral antibiotic. Patient non-cooperative during history taking. Echocardiogram on 05/13/2022: LVEF 45%, biatrial enlargement, aortic and mitral valve heavily calcified. Blood culture 05/12/2022 shows Streptococcus group A. Patient had remote history of IV drug user , current cigarette smoker and marijuana daily. Patient use Rollator walker for ambulation. Patient denies fever, chills, body aches, vomiting, diarrhea, nausea, abdominal pain, chest pain, shortness of breath, LOC, initial lab workup revealed hemoglobin 11.5, hemoglobin A1c 6.0, blood sugar 126. -X-ray left leg: The bones are diffusely osteopenic. Cortical irregularity of the proximal fibular shaft may represent a old healed fracture. , No acute fracture dislocation or other acute abnormality is seen -X-ray left hip:Internal fixation of the proximal left femur is seen. Vascular calcifications are noted. Degenerative changes are seen of the lumbar spine. No definite acute fracture is seen. UDS positive for cannabinoids. CT scan of the left lower extremity- Lateral left lower extremity soft tissue edema / stranding and skin thickening with ulceration. No loculated fluid collection identified, within the limitations of noncontrast examination. Atherosclerotic calcification disease. Osteopenia. Old/ chronic appearing proximal fibular fracture deformity. Correlate with point tenderness to exclude acute fracture. Wound culture no growth. Past medical history: HTN, COPD not on home oxygen, CHF with reduced ejection fraction LVEF 45%, seizure, bipolar disorder, depression, current smoker Past surgical history: Fracture repair of the left hip status post fall,. Family history: Nothing contributory Personal history: Smoking cigarettes 1 pack per day, marijuana daily, denies any alcohol or illicit drug Alert Allergy: Aspirin and penicillin Home medication: Albuterol, amlodipine, aspirin, atorvastatin, beclomethasone inhalers, budesonide, divalproex, gabapentin, hydroxyzine, metoprolol, quetiapine, Brilinta. PCP: Marian Dennis Patient was seen today at bedside, labs and chart reviewed. Wound culture no growth. MRSA screening negative. Patient on oral antibiotic doxycycline 100 mg p.o. b.i.d. as per social service" Per Damien at [facility], the pt is no longer an IE member since 09/08/25. [facility] termed out on 09/08/25?. Social service consult for recuperative care in place. Insurance issue affecting discharge planning. Objective vital signs Vital Sign Date Time Temp Pulse Resp B/P (MAP) Pulse Ox O2 Delivery O2 Flow Rate FiO2 10/01/25 10:10 72 137/68 10/01/25 09:00 97.5 18 93 97.5 10/01/25 08:00 Room Air* 0 21 Total Intake and Output 09/30/25 09/30/25 10/01/25 15:00 23:00 07:00 Intake Total 900 ml Balance 900 ml medications Current Medications Medications Dose Ordered Sig/Leah Route Start Time Stop Time Status Last Admin Dose Admin Acetaminophen/ Hydrocodone Bitart 1 tab Q4HP PRN PO 09/25/25 22:45 10/01/25 02:26 1 TAB Zinc Sulfate 220 mg DAILY PO 09/26/25 10:00 10/01/25 10:10 220 MG Ascorbic Acid 500 mg BID PO 09/26/25 10:00 10/01/25 10:09 500 MG Nitroglycerin 0.4 mg Q5MINP PRN SL 09/25/25 22:45 Pantoprazole Sodium 40 mg DAILY@0600 PO 09/26/25 06:00 10/01/25 05:32 40 MG Ticagrelor 90 mg BID PO 09/26/25 10:00 10/01/25 10:10 90 MG Quetiapine Fumarate 50 mg BID PO 09/26/25 10:00 10/01/25 10:09 50 MG Metoprolol Succinate 50 mg DAILY PO 09/26/25 10:00 10/01/25 10:10 50 MG Gabapentin 300 mg BID PO 09/26/25 10:00 10/01/25 10:09 300 MG Divalproex Sodium 500 mg BID PO 09/26/25 10:00 10/01/25 10:09 500 MG Albuterol 2.5 mg Q8HPRN PRN NEB 09/25/25 22:45 09/27/25 09:33 2.5 MG Amlodipine Besylate 5 mg DAILY PO 09/26/25 10:00 10/01/25 10:09 5 MG Aspirin 81 mg DAILY PO 09/26/25 10:00 Hold Atorvastatin Calcium 80 mg HS PO 09/26/25 22:00 09/30/25 21:32 80 MG Ergocalciferol 50,000 unit Q7D PO 09/28/25 16:00 Doxycycline Monohydrate 100 mg Q12HR PO 10/01/25 22:00 laboratory and microbiology Laboratory Tests 10/01/25 06:30 Test 10/01/25 06:30 Range/Units Serum Glucose 118 H 74-106 mg/dL Microbiology Date/Time Source Procedure Growth Status 09/29/25 17:23 Foot Left Gram Stain - Final Resulted 09/29/25 17:23 Foot Left Wound Culture - Preliminary No growth Resulted Problem List/Assessment/Plan Problem List/Assessment/Plan Assessment and plan # Left lower extremity nonhealing infected stage II wound #History of MRSA wound s/p treatment #Nonhealing wound rule out PAD -X-ray left leg: The bones are diffusely osteopenic. Cortical irregularity of the proximal fibular shaft may represent a old healed fracture. , No acute fracture dislocation or other acute abnormality is seen -X-ray left hip:Internal fixation of the proximal left femur is seen. Vascular calcifications are noted. Degenerative changes are seen of the lumbar spine. No definite acute fracture is seen. -CT scan of the left lower extremity without contrast to rule out cellulitis/osteomyelitis-Lateral left lower extremity soft tissue edema / stranding and skin thickening with ulceration. No loculated fluid collection identified --Wound culture-no growth -MRSA screen negative -WBC within normal limit -continue doxycycline 100 mg p.o. b.i.d. #Seizure disorder -Resumed home medication divalproex 500 p.o. b.i.d. -Seizure precaution -Follow-up neurology outpatient # CAD, status post PCI x4 in 2022 [facility] #Acute on chronic systolic heart failure, #Essential hypertension #Hyperlipidemia - Echocardiogram on 05/13/2022-LVEF 45%, biatrial enlargement ortic and mitral valve heavily calcified. -continue aspirin 81 mg p.o. daily -Brilinta 90 mg p.o. b.i.d. -atorvastatin 80 mg p.o. q.h.s. -amlodipine 5 mg p.o. daily -pantoprazole 40 mg p.o. daily #COPD without acute exacerbation Nebulization we Albuterol and ipratropium PRN # bipolar disorder type 2 # depression -continue quetiapine 50 mg p.o. b.i.d. -continue divalproex 500 mg p.o. b.i.d. #Peripheral neuropathy -continue Gabapentin 100 mg p.o. b.i.d. #Elevated alkaline phosphatase Alkaline phosphatase level 154 with normal AST ALT follow-up labs #Anemia due to chronic disease -monitor CBC #Prediabetes HBA1C 6.0 -low carb diet #Substance use disorder and current smoker -counseled about the effect of substance abuse on health # noncompliant with Discussed side effects of noncompliance with medical management. Patient verbally agreed vertebral discussed. Goals of care, Code status full code ; discussed with >15 minutes PUD prophylaxis: Pantoprazole DVT prophylaxis: Patient ambulating Plan discussed with Dr. Priest , nursing staff, Patient yellow Total time spent on patient evaluation, chart review, assessment and plan, discussion discussion >35 minutes Plan discussed with: Patient, Other (RN) My Orders My Orders Orders - ELVIRA ROGESR RESIDENT Procedure Category Date Status Time Doxycycline Tablet PHA 10/01/25 In Process (Vibramycin Tablet) 22:00 Dietary Evaluation Review Comments: Nutrition Recommendation: 1) Consider CCHO 45gm + cardiac diet 2) Monitor PO intake, lab values, weight trend, and I/O Expected Outcomes/Goals: Wound to improve FU 3-5 days ELVIRA ROGERS RESIDENT Oct 01, 2025 10:43
--- NOTE | 2025-10-01 10:51 | DVHPN2 ---
ELVIRA ROGERS RESIDENT 10/01/25 1051: Progress Note Date Seen: Oct 01, 2025 Has the PT tested + for MRSA If YES, has PT been informed?: No Medical Necessity Reason Pt with a Central, PICC or Fol: No Subjective Review of Systems This is a 75-year-old female with past medical history of HTN, coronary artery disease, status post PCI x4 in 2022 at [facility], COPD not on home oxygen, CHF with reduced ejection fraction LVEF 45%, seizure, bipolar disorder, depression, current smoker came to ER with complaint of left hip and left leg pain associated with nonhealing wound. The left leg pain was 8/10 intensity, localized, no radiation, continuous, aggravated on weight-bearing in mild relieved on rest. Patient reported having greenish discharge from the wound of the left foot for last 2 months. As per patient, patient had left hip fracture and admitted [facility] on July 2025 and treated with MRSA, completed oral antibiotic. Patient non-cooperative during history taking. Echocardiogram on 05/13/2022: LVEF 45%, biatrial enlargement, aortic and mitral valve heavily calcified. Blood culture 05/12/2022 shows Streptococcus group A. Patient had remote history of IV drug user , current cigarette smoker and marijuana daily. Patient use Rollator walker for ambulation. Patient denies fever, chills, body aches, vomiting, diarrhea, nausea, abdominal pain, chest pain, shortness of breath, LOC, initial lab workup revealed hemoglobin 11.5, hemoglobin A1c 6.0, blood sugar 126. -X-ray left leg: The bones are diffusely osteopenic. Cortical irregularity of the proximal fibular shaft may represent a old healed fracture. , No acute fracture dislocation or other acute abnormality is seen -X-ray left hip:Internal fixation of the proximal left femur is seen. Vascular calcifications are noted. Degenerative changes are seen of the lumbar spine. No definite acute fracture is seen. UDS positive for cannabinoids. CT scan of the left lower extremity- Lateral left lower extremity soft tissue edema / stranding and skin thickening with ulceration. No loculated fluid collection identified, within the limitations of noncontrast examination. Atherosclerotic calcification disease. Osteopenia. Old/ chronic appearing proximal fibular fracture deformity. Correlate with point tenderness to exclude acute fracture. Wound culture no growth. Past medical history: HTN, COPD not on home oxygen, CHF with reduced ejection fraction LVEF 45%, seizure, bipolar disorder, depression, current smoker Past surgical history: Fracture repair of the left hip status post fall,. Family history: Nothing contributory Personal history: Smoking cigarettes 1 pack per day, marijuana daily, denies any alcohol or illicit drug Alert Allergy: Aspirin and penicillin Home medication: Albuterol, amlodipine, aspirin, atorvastatin, beclomethasone inhalers, budesonide, divalproex, gabapentin, hydroxyzine, metoprolol, quetiapine, Brilinta. PCP: Marian Dennis Patient was seen today at bedside, labs and chart reviewed. Wound culture no growth. MRSA screening negative. Patient on oral antibiotic doxycycline 100 mg p.o. b.i.d. as per social service" Per Damien at [facility], the pt is no longer an IE member since 09/08/25. [facility] termed out on 09/08/25?. Social service SNF for wound care in place. Insurance issue affecting discharge planning. Objective vital signs Vital Sign Date Time Temp Pulse Resp B/P (MAP) Pulse Ox O2 Delivery O2 Flow Rate FiO2 10/01/25 10:10 72 137/68 10/01/25 09:00 97.5 18 93 97.5 10/01/25 08:00 Room Air* 0 21 Total Intake and Output 09/30/25 09/30/25 10/01/25 15:00 23:00 07:00 Intake Total 900 ml Balance 900 ml medications Current Medications Medications Dose Ordered Sig/Leah Route Start Time Stop Time Status Last Admin Dose Admin Acetaminophen/ Hydrocodone Bitart 1 tab Q4HP PRN PO 09/25/25 22:45 10/01/25 02:26 1 TAB Zinc Sulfate 220 mg DAILY PO 09/26/25 10:00 10/01/25 10:10 220 MG Ascorbic Acid 500 mg BID PO 09/26/25 10:00 10/01/25 10:09 500 MG Nitroglycerin 0.4 mg Q5MINP PRN SL 09/25/25 22:45 Pantoprazole Sodium 40 mg DAILY@0600 PO 09/26/25 06:00 10/01/25 05:32 40 MG Ticagrelor 90 mg BID PO 09/26/25 10:00 10/01/25 10:10 90 MG Quetiapine Fumarate 50 mg BID PO 09/26/25 10:00 10/01/25 10:09 50 MG Metoprolol Succinate 50 mg DAILY PO 09/26/25 10:00 10/01/25 10:10 50 MG Gabapentin 300 mg BID PO 09/26/25 10:00 10/01/25 10:09 300 MG Divalproex Sodium 500 mg BID PO 09/26/25 10:00 10/01/25 10:09 500 MG Albuterol 2.5 mg Q8HPRN PRN NEB 09/25/25 22:45 09/27/25 09:33 2.5 MG Amlodipine Besylate 5 mg DAILY PO 09/26/25 10:00 10/01/25 10:09 5 MG Aspirin 81 mg DAILY PO 09/26/25 10:00 Hold Atorvastatin Calcium 80 mg HS PO 09/26/25 22:00 09/30/25 21:32 80 MG Ergocalciferol 50,000 unit Q7D PO 09/28/25 16:00 Doxycycline Monohydrate 100 mg Q12HR PO 10/01/25 22:00 Lidocaine 1 patch DAILY TOP 10/02/25 10:00 UNV Examination General examination- not in acute distress HEENT- PEERLA, no acute nasal discharge Cardiovascular- S1-S2 audible, rate and rhythm regular, no murmur Respiratory- CTAB, no wheeze or rhonchi Gastrointestinal-nontender, bowel sound+. Nondistended Musculoskeletal-no acute joint swelling or tenderness or redness Lower extremity- wound on the left hip, healing, wound on the left lateral leg with discharge Neurological- cranial nerves intact, no acute dysarthria or dysphagia Psychiatry- denies depression or SI or HI Skin- no acute rash or purpura laboratory and microbiology Laboratory Tests 10/01/25 06:30 Test 10/01/25 06:30 Range/Units Serum Glucose 118 H 74-106 mg/dL Microbiology Date/Time Source Procedure Growth Status 09/29/25 17:23 Foot Left Gram Stain - Final Resulted 09/29/25 17:23 Foot Left Wound Culture - Preliminary No growth Resulted Problem List/Assessment/Plan Problem List/Assessment/Plan Assessment and plan # Left lower extremity nonhealing infected stage II wound #History of MRSA wound s/p treatment #Nonhealing wound rule out PAD -X-ray left leg: The bones are diffusely osteopenic. Cortical irregularity of the proximal fibular shaft may represent a old healed fracture. , No acute fracture dislocation or other acute abnormality is seen -X-ray left hip:Internal fixation of the proximal left femur is seen. Vascular calcifications are noted. Degenerative changes are seen of the lumbar spine. No definite acute fracture is seen. -Wound culture, Blood culture -WBC within normal limit -ordered wound consult -pending wound culture -continue ceftriaxone as prescribed -continue vancomycin as per pharmacy protocol -CT scan of the left lower extremity without contrast to rule out cellulitis/osteomyelitis-Lateral left lower extremity soft tissue edema / stranding and skin thickening with ulceration. No loculated fluid collection identified Ordered Social service consult for SNF for wound care #Seizure disorder -Resumed home medication divalproex 500 p.o. b.i.d. -Seizure precaution -Follow-up neurology outpatient # CAD, status post PCI x4 in 2022 [facility] #Acute on chronic systolic heart failure, #Essential hypertension #Hyperlipidemia - Echocardiogram on 05/13/2022-LVEF 45%, biatrial enlargement ortic and mitral valve heavily calcified. -continue aspirin 81 mg p.o. daily -Brilinta 90 mg p.o. b.i.d. -atorvastatin 80 mg p.o. q.h.s. -amlodipine 5 mg p.o. daily -pantoprazole 40 mg p.o. daily #COPD without acute exacerbation Nebulization we Albuterol and ipratropium PRN # bipolar disorder type 2 # depression -continue quetiapine 50 mg p.o. b.i.d. -continue divalproex 500 mg p.o. b.i.d. #Peripheral neuropathy -continue Gabapentin 100 mg p.o. b.i.d. #Elevated alkaline phosphatase Alkaline phosphatase level 154 with normal AST ALT follow-up labs #Anemia due to chronic disease -monitor CBC #Prediabetes HBA1C 6.0 -low carb diet #Substance use disorder and current smoker -counseled about the effect of substance abuse on health # noncompliant with Discussed side effects of noncompliance with medical management. Patient verbally agreed vertebral discussed. Goals of care, Code status full code ; discussed with >15 minutes PUD prophylaxis: Pantoprazole DVT prophylaxis: Lovenox Plan discussed with , nursing staff, Patient Total time spent on patient evaluation, chart review, assessment and plan, discussion discussion >35 minutes Plan discussed with: Patient, Other (RN) My Orders My Orders Orders - ELVIRA ROGERS Procedure Category Date Status Time Doxycycline Tablet PHA 10/01/25 In Process (Vibramycin Tablet) 22:00 Lidocaine 5% Topical PHA 10/02/25 Logged Patch (Lidoderm 5% 10:00 Dietary Evaluation Review Comments: Nutrition Recommendation: 1) Consider CCHO 45gm + cardiac diet 2) Monitor PO intake, lab values, weight trend, and I/O Expected Outcomes/Goals: Wound to improve FU 3-5 days Date of Service: Oct 01, 2025 Billing Provider: CURTIS JOINER MD Common Visit Codes: [id number] INP/OBS CARE(HIGH) CURTIS JOINER MD 10/08/252044: ELVIRA ROGERS Oct 01, 2025 10:51 CURTIS JOINER MD Oct 08, 2025 20:45
[2025-10-01 13:55] LABS: Hematocrit 32.3 % (36.0-46.0); Nucleated Red Blood Cells % 0.1 %
[2025-10-01 13:57] LABS: Hemoglobin 10.4 g/dL (12.2-16.2); Mean Corpuscular Hemoglobin 26.7 pg (28.0-32.0); Mean Corpuscular Volume 83.0 fL (80.0-100.0)
[2025-10-01 16:59] VITALS: BP 82/43; PULSE 69; RESP 16; TEMP 97.8; O2SAT 97
[2025-10-01] MEDS: LIDOCAINE 5% TOPICAL PATCH TOP ONE (18:14)
[2025-10-01] MEDS: DOXYCYCLINE 100 MG TAB/CAP ONE (18:14)
[2025-10-01 20:41] VITALS: BP 82/43; PULSE 69; RESP 16; O2SAT 97
[2025-10-01 21:11] VITALS: BP 131/63; PULSE 69; RESP 17; TEMP 98.4; O2SAT 98
[2025-10-01] MEDS: DOXYCYCLINE 100 MG TAB/CAP PO SCH (21:14)
[2025-10-02] VITALS (8 sets, daily range): BP systolic 103–137; BP diastolic 38–87; PULSE 61–74; RESP 15–18; TEMP 97.3–98; O2SAT 93–98
[2025-10-02 06:46] LABS: Anion Gap 8 (5-15); Carbon Dioxide 25 mmol/L (20-31); Potassium 4.5 mmol/L (3.5-5.1); Sodium 141 mmol/L (136-145)
[2025-10-02 06:47] LABS: Calcium 8.8 mg/dL (8.7-10.4)
[2025-10-02 06:52] LABS: BUN/Creatinine Ratio 19.4 (10.0-20.0); Blood Urea Nitrogen 18 mg/dL (9-23); Glucose 92 mg/dL (74-106)
[2025-10-02 06:53] LABS: Chloride 108 mmol/L (98-107)
[2025-10-02] MEDS: LIDOCAINE 5% TOPICAL PATCH TOP SCH (10:25)
--- NOTE | 2025-10-02 14:48 | DVHPN2 ---
ELVIRA ROGERS RESIDENT 10/02/25 1447: Progress Note Date Seen: Oct 02, 2025 Has the PT tested + for MRSA If YES, has PT been informed?: No Medical Necessity Reason Pt with a Central, PICC or Fol: No Subjective Review of Systems This is a 75-year-old female with past medical history of HTN, coronary artery disease, status post PCI x4 in 2022 at [facility], COPD not on home oxygen, CHF with reduced ejection fraction LVEF 45%, seizure, bipolar disorder, depression, current smoker came to ER with complaint of left hip and left leg pain associated with nonhealing wound. The left leg pain was 8/10 intensity, localized, no radiation, continuous, aggravated on weight-bearing in mild relieved on rest. Patient reported having greenish discharge from the wound of the left foot for last 2 months. As per patient, patient had left hip fracture and admitted [facility] on July 2025 and treated with MRSA, completed oral antibiotic. Patient non-cooperative during history taking. Echocardiogram on 05/13/2022: LVEF 45%, biatrial enlargement, aortic and mitral valve heavily calcified. Blood culture 05/12/2022 shows Streptococcus group A. Patient had remote history of IV drug user , current cigarette smoker and marijuana daily. Patient use Rollator walker for ambulation. Patient denies fever, chills, body aches, vomiting, diarrhea, nausea, abdominal pain, chest pain, shortness of breath, LOC, initial lab workup revealed hemoglobin 11.5, hemoglobin A1c 6.0, blood sugar 126. -X-ray left leg: The bones are diffusely osteopenic. Cortical irregularity of the proximal fibular shaft may represent a old healed fracture. , No acute fracture dislocation or other acute abnormality is seen -X-ray left hip:Internal fixation of the proximal left femur is seen. Vascular calcifications are noted. Degenerative changes are seen of the lumbar spine. No definite acute fracture is seen. UDS positive for cannabinoids. CT scan of the left lower extremity- Lateral left lower extremity soft tissue edema / stranding and skin thickening with ulceration. No loculated fluid collection identified, within the limitations of noncontrast examination. Atherosclerotic calcification disease. Osteopenia. Old/ chronic appearing proximal fibular fracture deformity. Correlate with point tenderness to exclude acute fracture. Wound culture no growth. Past medical history: HTN, COPD not on home oxygen, CHF with reduced ejection fraction LVEF 45%, seizure, bipolar disorder, depression, current smoker Past surgical history: Fracture repair of the left hip status post fall,. Family history: Nothing contributory Personal history: Smoking cigarettes 1 pack per day, marijuana daily, denies any alcohol or illicit drug Alert Allergy: Aspirin and penicillin Home medication: Albuterol, amlodipine, aspirin, atorvastatin, beclomethasone inhalers, budesonide, divalproex, gabapentin, hydroxyzine, metoprolol, quetiapine, Brilinta. PCP: Marian Dennis Patient was seen today at bedside, labs and chart reviewed. Patient on doxycycline 100 mg b.i.d.. Ordered social service consult for SNF for wound care. As per social service note 'Per Abner at at [facility] in [place] will check on review of clinicals and call me back." Objective vital signs Vital Sign Date Time Temp Pulse Resp B/P (MAP) Pulse Ox O2 Delivery O2 Flow Rate FiO2 10/02/25 13:00 97.3 61 18 107/38 (61) 93 97.3 10/02/25 09:50 Room Air* 0 21 Total Intake and Output 10/01/25 10/01/25 10/02/25 15:00 23:00 07:00 Intake Total 850 ml 840 ml Balance 850 ml 840 ml medications Current Medications Medications Dose Ordered Sig/Leah Route Start Time Stop Time Status Last Admin Dose Admin Acetaminophen/ Hydrocodone Bitart 1 tab Q4HP PRN PO 09/25/25 22:45 10/02/25 10:31 1 TAB Zinc Sulfate 220 mg DAILY PO 09/26/25 10:00 10/02/25 10:23 220 MG Ascorbic Acid 500 mg BID PO 09/26/25 10:00 10/02/25 10:25 500 MG Nitroglycerin 0.4 mg Q5MINP PRN SL 09/25/25 22:45 Pantoprazole Sodium 40 mg DAILY@0600 PO 09/26/25 06:00 10/02/25 05:44 40 MG Ticagrelor 90 mg BID PO 09/26/25 10:00 10/02/25 10:24 90 MG Quetiapine Fumarate 50 mg BID PO 09/26/25 10:00 10/02/25 10:24 50 MG Metoprolol Succinate 50 mg DAILY PO 09/26/25 10:00 10/01/25 10:10 50 MG Gabapentin 300 mg BID PO 09/26/25 10:00 10/02/25 10:24 300 MG Divalproex Sodium 500 mg BID PO 09/26/25 10:00 10/02/25 10:24 500 MG Albuterol 2.5 mg Q8HPRN PRN NEB 09/25/25 22:45 09/27/25 09:33 2.5 MG Amlodipine Besylate 5 mg DAILY PO 09/26/25 10:00 10/01/25 10:09 5 MG Aspirin 81 mg DAILY PO 09/26/25 10:00 Hold Atorvastatin Calcium 80 mg HS PO 09/26/25 22:00 10/01/25 21:13 80 MG Ergocalciferol 50,000 unit Q7D PO 09/28/25 16:00 Doxycycline Monohydrate 100 mg Q12HR PO 10/01/25 22:00 10/02/25 10:25 100 MG Lidocaine 1 patch DAILY TOP 10/02/25 10:00 10/02/25 10:25 1 PATCH Examination General examination- not in acute distress HEENT- PEERLA, no acute nasal discharge Cardiovascular- S1-S2 audible, rate and rhythm regular, no murmur Respiratory- CTAB, no wheeze or rhonchi Gastrointestinal-nontender, bowel sound+. Nondistended Musculoskeletal-no acute joint swelling or tenderness or redness Lower extremity- wound on the left hip, healing, wound on the left lateral leg with discharge Neurological- cranial nerves intact, no acute dysarthria or dysphagia Psychiatry- denies depression or SI or HI Skin- no acute rash or purpura laboratory and microbiology Laboratory Tests 10/02/25 06:00 10/01/25 13:30 Test 10/02/25 06:00 Range/Units Serum Glucose 92 74-106 mg/dL Microbiology Date/Time Source Procedure Growth Status 09/29/25 17:23 Foot Left Gram Stain - Final Resulted 09/29/25 17:23 Foot Left Wound Culture - Preliminary Resulted Problem List/Assessment/Plan Problem List/Assessment/Plan Assessment and plan # Left lower extremity nonhealing infected stage II wound #History of MRSA wound s/p treatment #Nonhealing wound rule out PAD -X-ray left leg: The bones are diffusely osteopenic. Cortical irregularity of the proximal fibular shaft may represent a old healed fracture. , No acute fracture dislocation or other acute abnormality is seen -X-ray left hip:Internal fixation of the proximal left femur is seen. Vascular calcifications are noted. Degenerative changes are seen of the lumbar spine. No definite acute fracture is seen. -Wound culture, Blood culture -WBC within normal limit -ordered wound consult -pending wound culture -continue ceftriaxone as prescribed -continue vancomycin as per pharmacy protocol -CT scan of the left lower extremity without contrast to rule out cellulitis/osteomyelitis-Lateral left lower extremity soft tissue edema / stranding and skin thickening with ulceration. No loculated fluid collection identified Ordered Social service consult for SNF for wound care -PENDING REVIEW #Seizure disorder -Resumed home medication divalproex 500 p.o. b.i.d. -Seizure precaution -Follow-up neurology outpatient # CAD, status post PCI x4 in 2022 [facility] #Acute on chronic systolic heart failure, #Essential hypertension #Hyperlipidemia - Echocardiogram on 05/13/2022-LVEF 45%, biatrial enlargement ortic and mitral valve heavily calcified. -continue aspirin 81 mg p.o. daily -Brilinta 90 mg p.o. b.i.d. -atorvastatin 80 mg p.o. q.h.s. -amlodipine 5 mg p.o. daily -pantoprazole 40 mg p.o. daily #COPD without acute exacerbation Nebulization we Albuterol and ipratropium PRN # bipolar disorder type 2 # depression -continue quetiapine 50 mg p.o. b.i.d. -continue divalproex 500 mg p.o. b.i.d. #Peripheral neuropathy -continue Gabapentin 100 mg p.o. b.i.d. #Elevated alkaline phosphatase Alkaline phosphatase level 154 with normal AST ALT follow-up labs #Anemia due to chronic disease -monitor CBC #Prediabetes HBA1C 6.0 -low carb diet #Substance use disorder and current smoker -counseled about the effect of substance abuse on health # noncompliant with Discussed side effects of noncompliance with medical management. Patient verbally agreed vertebral discussed. Goals of care, Code status full code ; discussed with >15 minutes PUD prophylaxis: Pantoprazole DVT prophylaxis: Patient ambulating Plan discussed with , nursing staff, Patient Total time spent on patient evaluation, chart review, assessment and plan, discussion discussion >35 minutes Plan discussed with: Patient, Other (RN) My Orders My Orders Orders - ELVIRA ROGERS Procedure Category Date Status Time * Lead Teacher CONS 10/01/25 Transmitted Consult Dietary Evaluation Review Comments: Nutrition Recommendation: 1) Consider CCHO 45gm + cardiac diet 2) Monitor PO intake, lab values, weight trend, and I/O Expected Outcomes/Goals: Wound to improve FU 3-5 days Date of Service: Oct 02, 2025 Billing Provider: CURTIS JOINER MD Common Visit Codes: [id number] INP/OBS CARE(HIGH) MATILDA VALENTINE RESIDENT 10/03/25 1436: CURTIS JOINER MD 10/08/25 2046: ELVIRA ROGERS Oct 02, 2025 14:47 MATILDA VALENTINE Oct 03, 2025 14:36 CURTIS JOINER MD Oct 08, 2025 20:46
[2025-10-03 01:00] VITALS: BP 111/49; PULSE 65; RESP 16; TEMP 97.2; O2SAT 100
[2025-10-03 05:00] VITALS: BP 117/48; PULSE 55; RESP 17; TEMP 97.8; O2SAT 96
[2025-10-03 05:57] LABS: Anion Gap 10 (5-15); Carbon Dioxide 23 mmol/L (20-31); Potassium 4.5 mmol/L (3.5-5.1); Sodium 140 mmol/L (136-145)
[2025-10-03 05:59] LABS: Calcium 8.9 mg/dL (8.7-10.4)
[2025-10-03 06:03] LABS: BUN/Creatinine Ratio 24.4 (10.0-20.0); Blood Urea Nitrogen 22 mg/dL (9-23); Glucose 80 mg/dL (74-106)
[2025-10-03 06:09] LABS: Chloride 107 mmol/L (98-107)
[2025-10-03 07:44] VITALS: RESP 16
[2025-10-03 09:00] VITALS: BP 150/63; PULSE 66; RESP 20; TEMP 97.6; O2SAT 98
--- NOTE | 2025-10-03 14:39 | DVHDSRES ---
Discharge Summary Date of Admission Resident Creating Document: ELVIRA ROGERS Sep 25, 2025 at 22:41 Date of Discharge: Sep 29, 2025 Labs/Diagnostic Data: Laboratory Results Test 10/03/25 04:37 10/01/25 13:30 10/01/25 06:30 09/28/25 05:27 Sodium Level 140 mmol/L (136-145) Potassium Level 4.5 mmol/L (3.5-5.1) Chloride Level 107 mmol/L (98-107) Carbon Dioxide Level 23 mmol/L (20-31) Anion Gap 10 (5-15) Blood Urea Nitrogen 22 mg/dL (9-23) Creatinine 0.90 mg/dL (0.550-1.02) Glomerular Filtration Rate Calc 66 mL/min (>90) BUN/Creatinine Ratio 24.4 (10.0-20.0) Serum Glucose 80 mg/dL (74-106) Calcium Level 8.9 mg/dL (8.7-10.4) White Blood Count 6.0 10^3/uL (4.4-10.8) Red Blood Count 3.90 10^6/uL (4.0-5.20) Hemoglobin 10.4 g/dL (12.2-16.2) Hematocrit 32.3 % (36.0-46.0) Mean Corpuscular Volume 83.0 fL (80.0-100.0) Mean Corpuscular Hemoglobin 26.7 pg (28.0-32.0) Mean Corpuscular Hemoglobin Concent 32.2 g/dL (32.0-36.0) Red Cell Distribution Width 17.6 % (11.8-14.3) Platelet Count 272 10^3/uL (140-450) Mean Platelet Volume 8.3 fL (6.9-10.8) Neutrophils (%) (Auto) 78.2 % (37.0-80.0) Lymphocytes (%) (Auto) 15.7 % (10.0-50.0) Monocytes (%) (Auto) 4.3 % (0.0-12.0) Eosinophils (%) (Auto) 1.5 % (0.0-7.0) Basophils (%) (Auto) 0.3 % (0.0-2.0) Neutrophils # (Auto) 4.7 10 ^3/uL (1.6-8.6) Lymphocytes # (Auto) 0.9 10 ^3/uL (0.4-5.4) Monocytes # (Auto) 0.3 10 ^3/uL (0-1.3) Eosinophils # (Auto) 0.1 10 ^3/uL (0-0.8) Basophils # (Auto) 0 10 ^3/uL (0-0.2) Nucleated Red Blood Cells 0.1 % Total Bilirubin 0.4 mg/dL (0.2-1.0) Aspartate Amino Transferase (AST) 36 U/L (13-40) Alanine Aminotransferase (ALT) 18 U/L (7-40) Alkaline Phosphatase 246 U/L (46-116) Total Protein 6.6 g/dL (5.7-8.2) Albumin 3.8 g/dL (3.2-4.8) Vitamin B12 Level 437 pg/mL (211-911) Vitamin D 25-Hydroxy 29.3 ng/mL (30.0-100) Folic Acid 15.53 ng/mL (>5.38) Random Vancomycin Level < 3.0 ug/mL (5-10) Test 09/27/25 16:43 09/27/25 05:24 09/25/25 19:40 Urine Color Light-yellow (Yellow) Urine Clarity Clear (Clear) Urine pH 7.5 (5.0-9.0) Urine Specific [place] 1.009 (1.001-1.035) Urine Protein Negative (Negative) Urine Ketones Negative (Negative) Urine Blood Negative /uL (Negative) Urine Nitrite Negative (Negative) Urine Bilirubin Negative (Negative) Urine Urobilinogen Normal mg/dL (Negative) Urine Leukocyte Esterase Negative /uL (Negative) Urine RBC 1 /hpf (0 - 4) Urine Microscopic WBC < 1 /HPF (0-5) Urine Squamous Epithelial Cells Few /hpf (<5) Urine Bacteria None seen /hpf (None Seen) Urine Glucose Normal mg/dL (Normal) Urine Opiates Screen Neg (NEGATIVE) Urine Fentanyl Screen Neg (NEGATIVE) Urine Barbiturates Screen Neg (NEGATIVE) Urine Phencyclidine Screen Neg (NEGATIVE) Urine Amphetamines Screen Neg (NEGATIVE) Urine Benzodiazepines Screen Neg (NEGATIVE) Urine Cocaine Screen Neg (NEGATIVE) Urine Cannabinoids Screen Pos (NEGATIVE) Magnesium Level 2.2 mg/dL (1.6-2.6) Hemoglobin A1c 6.0 % A1C (<5.7) Thyroid Stimulating Hormone (TSH) 1.63 uIU/mL (0.55-4.78) Other Laboratory Tests 10/03/25 04:37 10/01/25 13:30 Brief Hx & Hospital Course: This is a 75-year-old female with past medical history of HTN, coronary artery disease, status post PCI x4 in 2022 at [facility], COPD not on home oxygen, CHF with reduced ejection fraction LVEF 45%, seizure, bipolar disorder, depression, current smoker came to ER with complaint of left hip and left leg pain associated with nonhealing wound. The left leg pain was 8/10 intensity, localized, no radiation, continuous, aggravated on weight-bearing in mild relieved on rest. Patient reported having greenish discharge from the wound of the left foot for last 2 months. As per patient, patient had left hip fracture and admitted [facility] on July 2025 and treated with MRSA, completed oral antibiotic. Patient non-cooperative during history taking. Echocardiogram on 05/13/2022: LVEF 45%, biatrial enlargement, aortic and mitral valve heavily calcified. Blood culture 05/12/2022 shows Streptococcus group A. Patient had remote history of IV drug user , current cigarette smoker and marijuana daily. Patient use Rollator walker for ambulation. Patient denies fever, chills, body aches, vomiting, diarrhea, nausea, abdominal pain, chest pain, shortness of breath, LOC, initial lab workup revealed hemoglobin 11.5, hemoglobin A1c 6.0, blood sugar 126. -X-ray left leg: The bones are diffusely osteopenic. Cortical irregularity of the proximal fibular shaft may represent a old healed fracture. , No acute fracture dislocation or other acute abnormality is seen -X-ray left hip:Internal fixation of the proximal left femur is seen. Vascular calcifications are noted. Degenerative changes are seen of the lumbar spine. No definite acute fracture is seen. UDS positive for cannabinoids. CT scan of the left lower extremity- Lateral left lower extremity soft tissue edema / stranding and skin thickening with ulceration. No loculated fluid collection identified, within the limitations of noncontrast examination. Atherosclerotic calcification disease. Osteopenia. Old/ chronic appearing proximal fibular fracture deformity. Correlate with point tenderness to exclude acute fracture. During hospital course patient was treated with IV antibiotic ceftriaxone vancomycin, patient was noncompliant with treatment, refused wound culture, patient was counseled about the importance of med adenosine treatment drainage. Patient verbalized understanding. Patient is adamant about being discharged today. Patient is being discharged to SNF for wound care. Patient is being discharged with doxycycline 100 mg p.o. b.i.d.. Patient was advised to follow up with MD at SNF/ PCP. Patient is hemodynamically stable on discharge General examination- not in acute distress HEENT- PEERLA, no acute nasal discharge Cardiovascular- S1-S2 audible, rate and rhythm regular, no murmur Respiratory- CTAB, no wheeze or rhonchi Gastrointestinal-nontender, bowel sound+. Nondistended Musculoskeletal-no acute joint swelling or tenderness or redness Lower extremity- wound on the left hip, healing, wound on the left lateral leg with discharge Neurological- cranial nerves intact, no acute dysarthria or dysphagia Psychiatry- denies depression or SI or HI Skin- no acute rash or purpura Plan of care discussed with Dr. Priest Operations or Procedures [place] [address] Ph: [phone] DIAGNOSTIC IMAGING Diagnostic Imaging Report : [id number] Signed PATIENT: GHAZALA SAUCEDO ACCT: [id number] UNIT: [id number] : 1950 [facility]GE / SEX: 75 / F ADM STATUS: ADM IN SERVICE 2330 ORDERING PHYSICIAN: MARY GOLDSTEIN RESIDENT PROCEDURE(s): LHIP1 - L HIP 1V XRAY REASON: Nonhealing on to rule out osteomyelitis ORDER NUMBER(s): [id number], ACCESSION NUMBER(s): [id number] MEDICAL RECORDS NUMBER: [id number] PROCEDURE: XY L HIP 1V XRAY DATE: 09/26/2025 01:08 AM HISTORY: Nonhealing on to rule out osteomyelitis COMPARISON: None FINDINGS/IMPRESSION: The bones are osteopenic. Internal fixation of the proximal left femur is seen. Vascular calcifications are noted. Degenerative changes are seen of the lumbar spine. No definite acute fracture is seen. Mild degenerative changes are seen of the left hip ATED BY: HERMAN ROCA MD DICTATED DATE/TIME: 09/26/25142 SIGNED BY: HERMAN ROCA MD SIGNED DATE/TIME: 09/26/25142 CC: [place] [address] Ph: [phone] DIAGNOSTIC IMAGING Diagnostic Imaging Report : [id number] Signed PATIENT: GHAZALA SAUCEDO ACCT: [id number] UNIT: [id number] : 1950 LOC: OVERFLOW ROOM / BED: 1021-ER / A AGE / SEX: 75 / F ADM STATUS: ADM IN SERVICE 2330 ORDERING PHYSICIAN: MARY GOLDSTEIN PROCEDURE(s): LTBFB - L TIB FIB XRAY REASON: Nonhealing on to rule out osteomyelitis ORDER NUMBER(s): [id number], ACCESSION NUMBER(s): [id number] MEDICAL RECORDS NUMBER: [id number] PROCEDURE: XY L TIB FIB XRAY DATE: 09/26/2025 01:09 AM HISTORY: Nonhealing on to rule out osteomyelitis COMPARISON: L FOOT COMPLETE XRAY on DOS: 10/15/21 FINDINGS/IMPRESSION: The bones are diffusely osteopenic. Degenerative changes are seen at the ankle and knee. Cortical irregularity of the proximal fibular shaft may represent a old healed fracture. No acute fracture dislocation or other acute abnormality is seen. ATED BY: HERMAN ROCA MD DICTATED DATE/TIME: 09/26/25141 SIGNED BY: HERMAN ROCA MD SIGNED DATE/TIME: 09/26/25141 CC: [address] [address] Ph: [phone] DIAGNOSTIC IMAGING Diagnostic Imaging Report : [id number] Signed PATIENT: GHAZALA SAUCEDO ACCT: [id number] UNIT: [id number] : 1950 LOC: CENTRAL ROOM / BED: 0219 / B AGE / SEX: 75 / F ADM STATUS: ADM IN SERVICE 0940 ORDERING PHYSICIAN: PARDO R,MATILDA RESIDENT PROCEDURE(s): LLEX - LEFT LOWER EXTREMITY W/O CON REASON: no healing wound, rule out abcess ORDER NUMBER(s): [id number], ACCESSION NUMBER(s): [id number] Indication: no healing wound, rule out abcess Technique: CT axial images of the left tibia/ fibula from the left knee to the left ankle obtained without contrast. Coronal and sagittal reformats were obtained. Radiation Dose Information: CTDI volume is 7.75 mGy. Dose-length product is 330.84 mGy*cm Comparison: None FINDINGS/IMPRESSION: Limited evaluation without contrast. Lateral left lower extremity soft tissue edema / stranding and skin thickening with ulceration. No loculated fluid collection identified, within the limitations of noncontrast examination. Atherosclerotic calcification disease. Osteopenia. Old/ chronic appearing proximal fibular fracture deformity. Correlate with point tenderness to exclude acute fracture. Achilles enthesopathy. ATED BY: NENA POSADA MD DICTATED DATE/TIME: 09/27/25 1220 SIGNED BY: NENA POSADA MD SIGNED DATE/TIME: 09/27/25 1220 CC: Condition at Discharge: Stable Final Diagnosis/Problems List # Left lower extremity nonhealing infected stage II wound#History of MRSA wound s/p treatment#Nonhealing wound rule out PAD#Seizure disorder# CAD, status post PCI x4 in 2022 [facility]#Acute on chronic systolic heart failure, #Essential hypertension#Hyperlipidemia#COPD without acute exacerbation# bipolar disorder type 2# depression#Peripheral neuropathy#Elevated alkaline phosphatase#Anemia due to chronic disease#Prediabetes#Substance use disorder and current smoker# noncompliant with Discharge Disposition: [facility]dc Facility Discharge Instruct/Medications Diet: Consistent carbohydrate, Cardiac 2g Na,low cholest Diet comment: CCHO Activity: Light activity Follow Up/Referral: MD at SNF/PCP Medications: Doxycycline as prescribed Resume other home medication Scheduled Amlodipine Besylate (Amlodipine Besylate), 5 MG PO DAILY, (Reported) Aspirin Buffered (Joey Carb-Mag (Aspirin 325 mg), 1 TAB PO DAILY, (Reported) Atorvastatin Calcium (Atorvastatin Calcium), 80 MG PO DAILY, (Reported) Budesonide (Inhalation) (Budesonide), 0.5 MG IN BID, (Reported) Divalproex Sodium (Depakote), 1 TAB PO BID, (Reported) Divalproex Sodium (Depakote Er), 500 MG PO BID, (Reported) Gabapentin (Gabapentin), 300 MG PO BID, (Reported) Hydroxyzine Hcl (Hydroxyzine Hcl), 25 MG PO TIDPRN, (Reported) Metoprolol Succinate (Metoprolol Succinate Er), 50 MG PO DAILY, (Reported) Quetiapine Fumerate (Seroquel), 1 TAB PO QAM, (Reported) Quetiapine Fumerate (Seroquel), 600 MG PO QPM, (Reported) Quetiapine Fumerate (Quetiapine Fumarate), 50 MG PO BID, (Reported) Ticagrelor Base (Brilinta), 90 MG PO BID, (Reported) Miscellaneous Medications Levalbuterol Tartrate (Xopenex Hfa), (Reported) [Imitrex], (Reported) Discharge Statement: "Patient was advised to return to the ER or call 911 if any headaches, dizziness, shortness of breath, chest pain, abdominal pain, bleeding, fevers, or worsening of medical condition. Patient was counseled about treatment plan, medications, possible side effects, patientverbalized understanding. All questions were answered to the best of my ability. This discharge took greater then 30 minutes in planning, reviewing documentation, counseling the patient, and discussing with other team members." ASSESSMENT ASSESSMENT Assessment # Left lower extremity nonhealing infected stage II wound#History of MRSA wound s/p treatment#Nonhealing wound rule out PAD#Seizure disorder# CAD, status post PCI x4 in 2022 [facility]#Acute on chronic systolic heart failure, #Essential hypertension#Hyperlipidemia#COPD without acute exacerbation# bipolar disorder type 2# depression#Peripheral neuropathy#Elevated alkaline phosphatase#Anemia due to chronic disease#Prediabetes#Substance use disorder and current smoker# noncompliant with Date of Service: Oct 03, 2025 Billing Provider: CURTIS PRIEST MD Common Visit Codes: 84760-KKY/[id number] DISCH DAY >30min ELVIRA ROGERS RESIDENT Oct 03, 2025 14:39 CURTIS PRIEST MD Oct 08, 2025 20:46
[2025-10-03 21:00] VITALS: BP 124/63; PULSE 69; RESP 17; TEMP 98.1; O2SAT 96
== END 2025-10-03 21:05 | DRG 605 ==
LOC: ER 19:01 → EDBD 19:01 → EDUNIT# 19:01 → OVERFLOW 22:41 → CENTRAL 09-26 17:01
PROVIDERS: ADMIT Internal Medicine Geriatric Medicine; ATTEND Internal Medicine Geriatric Medicine
DX: S81.802A Unspecified open wound, left lower leg, initial encounter (principal); I11.0 Hypertensive heart disease with heart failure; D63.8 Anemia in other chronic diseases classified elsewhere; F31.81 Bipolar II disorder; G40.909 Epilepsy, unspecified, not intractable, without status epilepticus; J44.9 Chronic obstructive pulmonary disease, unspecified; I73.9 Peripheral vascular disease, unspecified; Z59.00 Homelessness unspecified; E78.5 Hyperlipidemia, unspecified; G62.9 Polyneuropathy, unspecified; F17.210 Nicotine dependence, cigarettes, uncomplicated; R74.8 Abnormal levels of other serum enzymes; R73.03 Prediabetes; I25.10 Atherosclerotic heart disease of native coronary artery without angina pectoris; X58.XXXA Exposure to other specified factors, initial encounter; Z91.199 Patient's noncompliance with other medical treatment and regimen due to unspecified reason; Z88.6 Allergy status to analgesic agent; Z88.0 Allergy status to penicillin; Z98.61 Coronary angioplasty status; Z79.82 Long term (current) use of aspirin; Z86.14 Personal history of Methicillin resistant Staphylococcus aureus infection; Z79.899 Other long term (current) drug therapy; Y93.89 Activity, other specified; Y92.89 Other specified places as the place of occurrence of the external cause; Y99.8 Other external cause status
CPT/HCPCS: 36415; 73501; 73590; 73700; 80048; 80053; 80202; 80307; 81001; 82306; 82607; 82746; 83036; 83735; 84443; 85025; 87077; 87081; 87186; 87205; 93306; 94640; 96365; G0378